=== PATIENT | male | born 1960 | race Caucasian/White ===

== ENCOUNTER → 2017-04-25 | Outpatient (CLI) | payer BC ==
[~2017-04-25] MED LIST: CMD10 PO; FRS/40 PO; LISI40TA PO
--- NOTE | 2017-04-25 14:09 | DIAGNOSTIC IMAGING REPORT ---
MRI OF THE LUMBAR SPINE WITHOUT IV CONTRAST CLINICAL HISTORY: Lumbar radiculopathy. Low back pain. Bilateral hip pain. COMPARISON STUDY: No priors. TECHNIQUE: MRI of the lumbar spine is performed utilizing various T1 and T2-weighted sequences in the axial and sagittal planes. IV contrast was not administered for this examination. FINDINGS: Lumbar spine: Vertebral body height and alignment are maintained throughout the lumbar spine. Marrow signal intensity is heterogeneous. A Schmorl's node is seen in the superior endplate of L3. Chronic degenerative endplate change with mild endplate edema is seen at L4-L5. Chronic endplate change is also seen at L1-L2, L2-L3, and L3-L4. The transverse and spinous processes appear intact. There is no evidence of spondylolysis. No destructive bony process is identified. Intervertebral discs: Degenerative disc desiccation is seen throughout the lumbar spine. Mild loss of height is noted at L4-L5 and there is mild to moderate loss of height at L2-L3. Spinal cord: The partially imaged spinal cord is normal in morphology and signal intensity. The conus medullaris terminates at the T12-L1 interspace. The nerve roots of the cauda equina are normal in morphology. L1-L2: There is posterior disc bulge with annular fissure. The central canal and neural foramina are patent. L2-L3: There is broad-based posterior disc bulge with annular fissure. In conjunction with hypertrophy of the ligamentum flavum there is mild acquired compromise of the central canal at this level. The minimum AP diameter measures 8.3 mm. There is bilateral subarticular stenosis with possible impingement on the exiting bilateral L2 nerve roots. L3-L4: There is narrowing of the central canal at this level, likely on a congenital basis. No significant disc bulge is seen. The minimum AP canal diameter measures 8 mm. The neural foramina are patent. Facet arthropathy is of no consequence. L4-L5: There is broad-based posterior disc bulge with annular fissure. In conjunction with hypertrophy of the ligamentum flavum there is moderate central canal stenosis at this level with a minimum AP diameter of 7 mm. There is bilateral subarticular stenosis, with probable impingement on the exiting bilateral L4 and possibly transiting L5 nerve roots. L5-S1: The central canal and neural foramina are widely patent. Facet arthropathy causes minimal left-sided neural foraminal stenosis. Facet joint effusions are noted. Sacrum: The partially imaged sacrum is normal in morphology and signal intensity. Soft tissues: The paraspinous soft tissues are within normal limits. The partially imaged retroperitoneal structures are grossly unremarkable but incompletely evaluated. IMPRESSION: 1. Multilevel lumbosacral spondylosis as above with multilevel acquired compromise of the central canal. This is greatest at L4-L5. See discussion for detailed level by level analysis. 2. No destructive bony lesion is identified. 3. Degenerative disc disease and endplate changes as above. Dictated: 04/25/2017 1:55 PM Transcribed: 04/25/2017 2:09 PM [email or web address] Electronically signed by: Jordan Mckeon M.D. 04/25/2017 2:10 PM Dictated Date/Time: 04/25/2017 1:55 PM
== END | disposition home or self-care (01) ==
LOC: C.MRIBC 12:19
PROVIDERS: ATTEND Pain Medicine Interventional Pain Medicine
DX: M47.27 Other spondylosis with radiculopathy, lumbosacral region (principal)

== ENCOUNTER 2020-12-09 10:07 | Observation (INO) ==
--- NOTE | 2020-11-20 10:51 | PAT Medication Instructions ---
Medication Instructions Date of Service November 20, 2020 Home Medications amlodipine 10 mg PO QAM ascorbic acid (vitamin C) [Vitamin C] 1 g PO QAM cholecalciferol (vitamin D3) [Vitamin D3] 125 mcg PO QAM labetalol 100 mg PO BID lisinopril 40 mg PO QPM meloxicam 15 mg PO QAM spironolacton-hydrochlorothiaz 1 tab PO QAM zinc 50 mg PO QAM ASK your surgeon for instructions meloxicam 15 mg PO QAM DO NOT take the morning of surgery ascorbic acid (vitamin C) [Vitamin C] 1 g PO QAM cholecalciferol (vitamin D3) [Vitamin D3] 125 mcg PO QAM spironolacton-hydrochlorothiaz 1 tab PO QAM zinc 50 mg PO QAM Take morning of surgery With a small sip of water, OTHERWISE NOTHING TO EAT OR DRINK AFTER MIDNIGHT: amlodipine 10 mg PO QAM labetalol 100 mg PO BID Take evening before surgery labetalol 100 mg PO BID lisinopril 40 mg PO QPM Other Notes If you have any questions please call us at [phone] or [phone] or [phone] or [phone]
--- NOTE | 2020-11-23 07:56 | History & Physical Report ---
Date of Service November 23, 2020 date of surgery: 12/09/20 Procedure: Right Total Knee Arthroplasty Assessment & Plan (1) Arthritis of right knee: Risks and benefits of procedure discussed in detail today, patient would like to proceed with a Right total knee replacement at [facility] as scheduled. will obtain medical clearance as well as cardiac clearance prior to surgery as well as obtain PATs at [facility]. Has history of PE, will place on Xarelto x 1 month post op, f/u 2 weeks post op for routine post-operative care and x-ray, sooner if having any problems. will make arrangements for HHPT at the time of discharge. At this point in time, has failed conservative measures and would like to proceed with surgical intervention. The risks and benefits have been discussed including, but not limited to, risk of infection, nerve injury, stiffness, loss of motion, failure to improve, etc. Reasonable outcomes and options of treatment were discussed. An explanation of appropriate alternatives to the procedure that may be advantageous were discussed and their risks and benefits, as well as the risks and benefits of not proceeding with treatment. I offered to answer any additional inquiries concerning the treatment involved. All the patient's questions were answered. The patient is agreeable, understanding of the treatment plan and alternatives, and wishes to proceed with the treatment plan. History of Present Illness Chief Complaint: Right knee pain Abelardo is a 60 year old male who complains of Right knee pain, presents for pre-op evaluation prior to a Right total knee replacement by dr Louis at [facility]. He complains of pain, crepitus, decreased range of motion, instability and stiffness in the right knee. Currently the patient states that the symptoms are moderate-severe. The pain is described as aching, sharp and throbbing. The symptoms are aggravated by ascending stairs, daily activities, first steps while awake walking. Prior NSAIDs include IBU and Aleve. He has been treated with previous cortisone and visco injections in the past without much relief. he has had Pt and sometimes uses a knee brace. prior right knee scope in November 2009. Allergies Allergy/AdvReac Type Severity Reaction Status Date / Time Sulfa (Sulfonamide Allergy Intermediate FEVER,HIVES Verified 11/19/20 15:20 Antibiotics) ,HALLUCINAT IONS latex Allergy Mild Rash Verified 11/19/20 15:20 celecoxib [From Celebrex] AdvReac Mild UPSET Verified 11/19/20 15:20 STOMACH/DIARRHEA Home Medications Medication Instructions Recorded Confirmed Type amlodipine 10 mg PO QAM 11/19/20 11/19/20 History ascorbic acid (vitamin C) [Vitamin 1 g PO QAM 11/19/20 11/19/20 History C] cholecalciferol (vitamin D3) 125 mcg PO QAM 11/19/20 11/19/20 History [Vitamin D3] labetalol 100 mg PO BID 11/19/20 11/19/20 History lisinopril 40 mg PO QPM 11/19/20 11/19/20 History meloxicam 15 mg PO QAM 11/19/20 11/19/20 History spironolacton-hydrochlorothiaz 1 tab PO QAM 11/19/20 11/19/20 History zinc 50 mg PO QAM 11/19/20 11/19/20 History Past Med/Surg History Medical History Hx of Choudhury's palsy 2018 Hypertension Osteoarthritis Passed out 08/31/20 (RELATED TO BP MEDICINE AND DEHYDRATION) Peripheral neuropathy Pulmonary embolism 2007 (? REASON, WAS ON BLOOD THINNER AFTER FOR 5 YEARS) Sleep apnea CPAP DEVICE Spinal stenosis Surgical History Family history of reaction to anesthesia MOTHER AND SISTER>NAUSEA ? SLOW TO WAKE UP History of appendectomy History of arthroscopy RT KNEE X2 LEFT KNEE X 1 History of cardiac cath NO STENTS (RECENT CATH DONE 3 WEEKS AGO AT [facility]) History of colonoscopy History of herniorrhaphy [place] teeth removed Family History Other No significant family history Social History Smoking Status: Never smoker Second Hand Exposure: No; Hx Alcohol Use: No Preferred Language: Khmer Folding Machine Tender Required: No Beliefs That Will Affect Care: None Current Living Situation: Spouse Feels Safe at Home: Yes Safety Concerns: Feels Safe At This Time Assistive Devices: Cane, CPAP and Glasses Review of Systems Review of Systems: All systems reviewed & are unremarkable except as noted in HPI & below Constitutional: no fever, no chills and no sweats Respiratory: no cough and no dyspnea Cardiovascular: no chest pain, no dyspnea and no orthopnea Gastrointestinal: no abdominal pain, no nausea and no vomiting Musculoskeletal: as per Subjective / HPI Physical Exam Physical Exam: HT: 6ft 4in WT: 153.77kg BP: 136/88 Pulse: 74 Constitutional: WD/WN, vitals as above no acute distress Respiratory: normal respiratory effort, lungs clear to auscultation no re spiratory distress, no labored breathing and does not use accessory muscles Cardiovascular: RRR, no murmur, no edema Gastrointestinal (Abdomen): normal bowel sounds, soft, nontender, no hepatosplenomegaly Musculoskeletal: Knee: + knee abnormal to inspection (Right Knee- ), + effusion (+1 effusion), + limited ROM of knee (ROM 0/3/110), + knee ROM with crepitation, + joint line tenderness (medial joint line) and + Tiff's sign positive; no deformity, no skin erythema, no ecchymosis, no valgus laxity, no varus laxity, anterior drawer test negative, Patricia's sign negative and pivot shift test negative Results & Data Results & Data ([facility]) Diagnostic Findings Right Knee X-ray series showing advanced degenerative changes to the right knee, narrowing of the medial compartment and patello-femoral joint with patellar spurring noted, findings showing joint space narrowing of the medial compartment and patello-femoral joint, osteophyte formation and subchondral sclerosis noted. overall varus alignment. no acute bony pathology noted. bipartate patella noted.
--- NOTE | 2020-11-23 10:10 | Anesthesiology Consultation ---
Date of Service November 23, 2020 Assessment & Plan (1) Encounter for pre-operative examination: COVID Status: As of 11/23 assessment, patient denies travel to endemic area, known exposure/sick contacts, or symptoms of COVID19. Patient instructed that they and their household members must follow strict social distancing guidelines, wear a mask in public and avoid travel/events/gatherings for 14 days prior to surgery. Preoperative COVID19 testing to be completed prior to surgery per surgeon's arrangements. Patient made aware to self-isolate as much as possible between COVID testing and surgery. Pt receiving second COVID vaccine 11/23. Note sent to PCP re: new diabetes diagnosis. Requested that if PCP starts pt on new medication to also provide kelli-operative instructions for that med. BSG AM DOS Chart Review Chart Review: Acceptable Risk for Surgery and Patient seen in Pre Admission Test ing Teaching & Discussion Instructed NPO after midnight before surgery, except medications with 15 cc of water. Medication instructions provided according to the PAT guidelines. History Surgery Operation Date: 12/09/20 12:20 Proposed Procedures p Right Total Knee Arthroplasty - Jesus Louis DO Height/Weight Height: 6 ft 4 in Weight: 157.9 kg Allergies Allergy/AdvReac Type Severity Reaction Status Date / Time Sulfa (Sulfonamide Allergy Intermediate FEVER,HIVES Verified 11/19/20 15:20 Antibiotics) ,HALLUCINAT IONS latex Allergy Mild Rash Verified 11/19/20 15:20 celecoxib [From Celebrex] AdvReac Mild UPSET Verified 11/19/20 15:20 STOMACH/DIARRHEA Medications Home Medications Medication Instructions Recorded Confirmed Last Taken amlodipine 10 mg PO QAM 11/19/20 11/19/20 Unknown ascorbic acid (vitamin C) [Vitamin 1 g PO QAM 11/19/20 11/19/20 Unknown C] cholecalciferol (vitamin D3) 125 mcg PO QAM 11/19/20 11/19/20 Unknown [Vitamin D3] labetalol 100 mg PO BID 11/19/20 11/19/20 Unknown lisinopril 40 mg PO QPM 11/19/20 11/19/20 Unknown meloxicam 15 mg PO QAM 11/19/20 11/19/20 Unknown spironolacton-hydrochlorothiaz 1 tab PO QAM 11/19/20 11/19/20 Unknown zinc 50 mg PO QAM 11/19/20 11/19/20 Unknown Past Medical History Medical History (Updated 11/23/20 @ 14:24 by Emiliano Davenport) Diabetes mellitus Patient unaware, PCP also has no record of this diagnosis -- A1C 7.7% on pre- op labs. PCP notified. Hx of Choudhury's palsy 2019, UNKNOWN ETIOLOGY Hypertension Morbid obesity Osteoarthritis Passed out 08/31/20 (RELATED TO BP MEDICINE AND DEHYDRATION) Peripheral neuropathy Pulmonary embolism 2007 (? ETIOLOGY, WAS ON BLOOD THINNER AFTER FOR 5 YEARS) Sleep apnea CPAP DEVICE, 100% COMPLIANCE Spinal stenosis Exercise / Class Metabolic Activity II 4-5 Yardwork/Stairs/Walk up hill (DENIES CP WITH 1 FOS, MAYBE MILDLY SOB, USES WALKING STICK FOR AMBULATION) Past Family History Family History Other No significant family history Past Surgical History Surgical History (Updated 11/23/20 @ 10:20 by Emiliano Davenport) History of appendectomy History of arthroscopy RT KNEE X2 LEFT KNEE X 1 History of cardiac cath NO STENTS (RECENT CATH DONE 3 WEEKS AGO AT [facility]) History of colonoscopy History of herniorrhaphy [place] teeth removed Past Anesthesia History No Hx of Anesthesia Complications (OTHER THAN POST-OP HTN PER PATIENT) and No Family Hx of Anesthesia Complications (OTHER THAN NAUSEA) History of PONV No Hx of PONV and No Hx of Motion Sickness Social History Smoking Status: Never smoker Do You Dip or Chew Tobacco: No Hx Alcohol Use: No substance use type: does not use Review of Systems Pt denies any recent chest pain, shortness of breath, palpitations, cough, fever , URI, or uncontrolled acid reflux. Pt reports steroid injection to lumbar spine ~ 2 weeks ago. Physical Exam Vital Signs BP: 133/80 P: 60bpm SPO2: 96% RA T: 98.4 F R: 18 Constitutional + morbidly obese ENMT Mouth: no dental restorations, no chipped teeth and no loose teeth Thyromental Distance: > or= 3.5 Finger Breadths Mallampati Class: II Neck + thick neck and + facial hair (short fernandez); neck extension not limited Respiratory normal respiratory effort, lungs clear to auscultation Auscultation: + diminished lung sounds Cardiovascular RRR, no murmur, no edema Distant heart sounds. Testing Laboratory Results 11/23/20 10:39 11/23/20 10:39 PT 10.7 Seconds (9.0-12.0) 11/23/20 10:39 INR 1.1 (0.9-1.1) 11/23/20 10:39 APTT 25.1 Seconds (21.0-31.0) 11/23/20 10:39 Hemoglobin A1c 7.7 % (4.5-5.6) H 11/23/20 10:39 Urine Color Yellow 11/23/20 10:39 Urine Appearance Clear (Clear) 11/23/20 10:39 Urine pH 5.0 (4.5-7.5) 11/23/20 10:39 Ur Specific [place] 1.027 (1.000-1.030) 11/23/20 10:39 Urine Protein Negative (Negative) 11/23/20 10:39 Urine Glucose (UA) Negative (Negative) 11/23/20 10:39 Urine Ketones Trace (Negative) H 11/23/20 10:39 Urine Nitrite Negative (Negative) 11/23/20 10:39 Ur Leukocyte Esterase Negative (Negative) 11/23/20 10:39 Blood Type O Positive 11/23/20 10:39 Antibody Screen NEGATIVE 11/23/20 10:39 *New diagnosis of DM. PCP made aware, labs forwarded for continuity of care. Electrocardiogram Date: 08/31/20 Findings: + NSR @ (75bpm) Left axis deviation. Possible anterior infarct, age undetermined. Chest X-Ray Date: 08/31/20 Findings: + NAD Right costophrenic angle excluded (not captured on x-ray). The heart is mildly enlarged. Echocardiogram Date: 10/02/20 EF: 55% Normal EF. Mild concentric LVH. Mildly dilated right ventricle with normal fu nction. Moderately dilated left atrium. Mildly dilated right atrium. Trileaflet aortic valve with trace aortic regurgitation. Mild mitral regurgitation. Normal tricuspid valve. Mild to moderate tricuspid regurgitation. Mildly increased PASP at 44 mmHg. Normal pulmonic valve. Physiologic pulmonic regurgitation. The aortic root is enlarged. Stress Test Date: 10/02/20 Type: nuclear Lexiscan stress EKG was negative for myocardial ischemia. Nuclear images show medium sized, moderate, reversible inferior wall defect suggestive of ischemia. No evidence of myocardial infarction. Normal LV EF and normal wall motion. Moderately abnormal stress test. *See cardiac cath below -- false + stress test Cardiac Catheterization Date: 10/15/20 No significant angiographic coronary artery disease. Normal left-sided filling pressure. No aortic stenosis.
[2020-11-23 11:13] LABS: Appearance Urine Clear (Clear); Basophils # (auto) 0.04 K/uL (0-0.2); Basophils % (auto) 0.4 %; Bilirubin Urine Negative (Negative); Blood Urine Negative (Negative); Color Urine Yellow; Eosinophils # (auto) 0.17 K/uL (0-0.5); Eosinophils % (auto) 1.8 %; Glucose Urine UA Negative (Negative); Hematocrit (blood only) 42.7 % (42-52); Hemoglobin 15.1 g/dL (14.0-18.0); Immature Granulocytes # (auto) 0.02 K/uL (0.00-0.02); Immature Granulocytes % (auto) 0.2 %; Ketones Urine Trace (Negative); Leukocyte Esterase Urine Negative (Negative); Lymphocytes # (auto) 1.42 K/uL (1.2-3.4); Lymphocytes % (auto) 14.8 %; Mean Corpuscular Hemoglobin 30.9 pg (25-34); Mean Corpuscular Hgb Conc 35.4 g/dL (32-36); Mean Corpuscular Volume 87.5 fL (80-100); Mean Platelet Volume 10.3 fL (7.4-10.4); Monocytes # (auto) 1.19 K/uL (0.11-0.59); Monocytes % (auto) 12.4 %; Neutrophils # (auto) 6.78 K/uL (1.4-6.5); Neutrophils % (auto) 70.4 %; Nitrite Urine Negative (Negative); Platelet Count 293 K/uL (130-400); Protein Urine Negative (Negative); RDW Coefficient of Variation 13.7 % (11.5-14.5); RDW Standard Deviation 43.7 fL (36.4-46.3); Red Blood Count 4.88 M/uL (4.7-6.1); Specific Gravity Urine 1.027 (1.000-1.030); Urobilinogen Urine Negative (Negative); White Blood Count 9.62 K/uL (4.8-10.8)
[2020-11-23 11:26] LABS: INR 1.1 (0.9-1.1); Partial Thromboplastin Time 25.1 Seconds (21.0-31.0); Prothrombin Time 10.7 Seconds (9.0-12.0)
[2020-11-23 11:37] LABS: Estimated Average Glucose 174 mg/dl; Hemoglobin A1C 7.7 % (4.5-5.6)
[2020-11-23 11:49] LABS: Albumin Level 3.2 gm/dl (3.4-5.0); BUN Creatinine Ratio 14.5 (10-20); Calcium 8.5 mg/dl (8.5-10.1); Creatinine Clr Calc Pharmacy 131.7 ml/min; Est GFR (African American) 98.5
[~2020-12-09 10:07] MED LIST changes: +ACETAMINOPHEN 500 MG TAB PO SCH; +BUPIVACAINE 0.25% 30 ML VIAL ONE; +BUPIVACAINE 0.5 % 5 MG/1 ML PF 10ML VIAL ONE; -CMD10 PO; +FAMOTIDINE 20 MG TAB PO SCH; -FRS/40 PO; +GABAPENTIN 600 MG DOSE PO SCH; -LISI40TA PO; +LR 500ML BOLUS, THEN 15ML/HR IV SCH; +METOCLOPRAMIDE HCL 10 MG TABLET PO SCH; +ROPIVACAINE 0.5% HCL/PF 150 MG, BUPIVACAINE 0.75% MPF 20 ML, EPINEPHrine 30MG/30ML (OR ... INFIL SCH; +ROPIVACAINE 0.5% HCL/PF 150 MG, BUPIVACAINE 0.75% MPF 20 ML, EPINEPHrine 30MG/30ML (OR ... INSTIL SCH; +TRANEXAMIC ACID 1,000 MG **IV Intra-op IV SCH; +TRANEXAMIC ACID 1,000 MG **IV Pre-op IV SCH; +dexAMETHasone 4 MG TAB PO SCH; +oxyCODONE HCL 10 MG TABCR (OxyCONTIN) PO SCH
--- NOTE | 2020-12-09 11:04 | History & Physical Bridge Note ---
Date of Service December 09, 2020 History & Physical Bridge Note I have examined the patient, reviewed the History & Physical and in the interval since the performance of the History & Physical I have noted the following changes of clinical significance: no changes noted
[2020-12-09] MEDS ORDERED: fentaNYL citrate 100 MCG/2 ML VIAL ONE (11:09)
[2020-12-09] MEDS ORDERED: MIDAZOLAM HCL 1 MG/ML 2ML VIAL ONE ×2 (11:09)
[2020-12-09] MEDS ORDERED: LIDOCAINE HCL 2% 2 ML VIAL/AMP(20MG/ML) INFIL ONE (11:14)
[2020-12-09] MEDS ORDERED: PROPOFOL IV EMULSION 10 MG/ML 20 ML VIAL IV ONE (11:14)
[2020-12-09] MEDS ORDERED: BACITRACIN INJ 50,000 UNIT VIAL ONE (11:36)
[2020-12-09] MEDS ORDERED: ORTHO JOINT ANESTHETIC ONE (11:36)
[2020-12-09] MEDS ORDERED: ATROPINE SULFATE 0.1 MG/ML 10ML SYR IV PRN (11:49)
[2020-12-09] MEDS ORDERED: ePHEDrine sulfate 50 MG/ML AMP IV PRN (11:49)
[2020-12-09] MEDS ORDERED: ONDANSETRON INJ 2 MG/ML 2 ML VIAL IV PRN ×2 (11:49→14:52)
--- NOTE | 2020-12-09 13:40 | Operative Report ---
Post Operative Report Pre & Post Diagnosis Operation Date: 12/09/20 12:50 Pre-Op Diagnosis: Osteoarthritis, Right Knee Post-Op Diagnosis: Osteoarthritis, Right Knee I identified the patient and participated in the time-out.: Yes Procedure Operation Date: 12/09/20 12:50 Actual Procedures p Right Total Knee Arthroplasty(Right) utilizing [facility] 2 patient matched total knee Damien plasty size 9 femur 8 tibia with 70 x 10 mm stem 12 polyethylene 38 oval patella- Jesus Louis DO Surgeon Jesus Louis DO Color Tester Robert POWELL Estimated Blood Loss 10 Findings Consistent with Post-Op Diagnosis Patient presents with severe end-stage tricompartmental degenerative joint disease varus alignment subchondral [id number] eburnated bone with marginal osteophytes moderate to large effusion Specimens Bone and cartilage Drains Medium bore Hemovac Anesthesia Type MAC Spinal Regional Complications none Disposition Accompanied Patient To Recovery: No Disposition: Recovery Room Indications Patient presents with severe end-stage DJD right knee nonresponse to conservative management failed attempted corticosteroid injection Visco supplementation relative rest activity modification presents today for right total knee arthroplasty above intraoperative findings were noted Description of Procedure After proper prepping and draping of the Right lower extremity anterior midline incision was made over the region of the extensor extensor mechanism after meticulous hemostasis was obtained and maintained in subcutaneous tissues a medial parapatellar incision was made The patella was subluxed lateralward the medial lateral gutter were cleaned from any hypertrophic synovitis and scar tissue of the distal femoral block was placed and the distal femoral osteotomy cut was made subsequently the chamfers anterior and posterior osteotomy cuts were made utilizing the 4-in-1 block the tibia was subsequently subluxed anteriorward medial and ateral meniscal remnants were excised in their entirety remnants of the anterior and posterior cruciate ligaments were excised in their entirety excellent exposure of the proximal tibia was obtained the tibial osteotomy guide was placed on the proximal tibial osteotomy cut was made once again the knee was irrigated with copious amounts of sterile saline solution the patella was subsequently everted lateralward thickened scar tissue around the patella was removed the patella was subsequently cut utilizing a freehand technique and was drilled prepared for final preparation and placement of patella socially flexion-extension gaps were checked and the equal and symmetric trials were placed to the appropriate femoral and tibial trials with poly-spacer being placed for equal flexion and extension gaps and full range of motion including extension to 0 and flexion to 140 the trial components after having been taken to recovery range of motion was subsequently removed meticulous hemostasis was obtained and maintained subsequently a knee block injection of joint cocktail including ropivacaine 0.5% 150 mg. Bupivacaine 0.5% epinephrine 1-200,030 mL's toradol 30 mg dexamethasone 4 mg ketamine 10 mg clonidine 100 micrograms normal saline solution 30 mg was infiltrated into the soft tissues of the posterior knee medial lateral gutters and periosteal synovium special attention was paid to protect neurovascular structures at all times subsequently trial components having been removed the knee was irrigated with sterile saline solution. debris was removed the proximal tibia was subsequently prepared and was made ready for the placement of the tibial component tibial component was also cemented and tamped into position the femoral component was subsequently placed and cemented in the position the patellar component was subsequently cemented in position because hemostasis once again obtained and maintained wound having been thoroughly irrigated with debridement and debridement lavage was performed as well as a medial parapatellar incision closed with #1 Vicryl in interrupted fashion subcutaneous was closed with #2 Vicryl skin was closed with skin clips. PA-C was necessary for prepping and drapping as well as wound closure of deep fascia Sub cutaneous tissue and skin and was necessary for the case. A sterile compressive dressing was placed patient was taken to recovery in stable condition of report dictated by Heriberto I attest to the content of the Intraoperative Record and any orders documented therein. Any exceptions are noted below. I attest to the content of the Intraoperative Record and any orders documented therein. Any exceptions are noted below.
--- NOTE | 2020-12-09 14:33 | Anesthesiology Progress Note ---
Date of Service December 09, 2020 Anesthesia Post Procedure Vital Signs Vital Signs: Temp Pulse Pulse Resp BP Pulse Ox 12/09/20 14:25 68 11 L 133/67 97 12/09/20 14:19 36.1 C L 73 14 142/72 H 96 12/09/20 11:22 69 20 138/91 93 12/09/20 10:46 36.5 C 62 20 144/96 H 94 Pain Intensity Right Knee: Pain Intensity: 6 Transfer of Care Handoff Completed per policy Notes Mental Status: alert / awake / arousable and participated in evaluation Patient Amnestic to Procedure: Yes Nausea / Vomiting: adequately controlled Pain: adequately controlled Airway Patency, RR, SpO2: stable & adequate BP & HR: stable & adequate Hydration State: stable & adequate Neuraxial Anesthesia: was administered and sensory block is resolving Anesthetic Complications: no major complications apparent and Pt Satisfied with anesthetic care
[2020-12-09] MEDS ORDERED: METOCLOPRAMIDE HCL INJ 5 MG/ML 2 ML VIAL IV PRN (14:52)
[2020-12-09] MEDS ORDERED: HYDROmorphone INJ 1 MG/ML SYRINGE IV PRN (14:52)
[2020-12-09] MEDS ORDERED: NALOXONE HCL 0.4 MG/1 ML VIAL/CARP IV PRN (14:52)
[2020-12-09] MEDS ORDERED: diphenhydrAMINE Capsule 25 MG CAP PO PRN (14:52)
[2020-12-09] MEDS ORDERED: MAGNESIUM HYDROXIDE SUSP 30 ML UDC PO PRN (14:52)
[2020-12-09] MEDS ORDERED: bisacodyL 10 MG SUPP PR PRN (14:52)
--- NOTE | 2020-12-09 14:57 | XRay Report ---
RIGHT KNEE 2 VIEWS History: Right total knee arthroplasty. Degenerative arthritis. Postop. FINDINGS: The patient is status post a right total knee arthroplasty. The hardware is intact. No frac ture or dislocation. Skin mata and surgical drains are in place. IMPRESSION: Right total knee arthroplasty. No evidence for hardware complication. ACT 112: Negative or not required by law. Electronically signed by: Dennis Blake M.D. 12/09/2020 2:56 PM
[2020-12-09] MEDS ORDERED: GLUCOSE 10 TABS/TUBE PO PRN (16:16)
[2020-12-09] MEDS ORDERED: GLUCAGON FOR INJ 1 MG VIAL SQ PRN (16:16)
[2020-12-09] MEDS ORDERED: CARBOHYDRATES FOR HYPOGLYCEMIA PO PRN (16:16)
[2020-12-09] MEDS ORDERED: GLUCOSE 40% GEL 15 GM TUBE PO PRN (16:16)
[2020-12-09] MEDS ORDERED: DEXTROSE 50% 50 ML SYRINGE IV PRN (16:16)
--- NOTE | 2020-12-09 16:18 | Hospitalist Consultation ---
Date of Consultation December 09, 2020 Assessment & Plan (1) Arthritis of right knee: * S/p RIGHT TKA with Dr. Louis on 12/09. EBL 10cc. * Pre-op h/h 15.1/42.7 * Ancef abx * PT/OT/pain management per primary service * DVT prophylaxis with Xarelto 10mg daily starting tomorrow along with SCDs/joe hose * Labs in AM (2) Hypertension: * Most recent ECHO Sep 2020 with Left ventricle is normal in size with normal ejection fraction 55%. Mild concentric LVH. Mild left atrial dilation as well as mildly dilated right ventricle with normal function. Right atrium mildly dilated. Mild mitral regurgitation directed centrally. The mitral valve is mildly thickened. Aortic valve with trace aortic regurgitation. Mild to moderate tricuspid regurgitation centrally directed as well. With the PASP equal to 44 mmHg * Maki Stress ECHO 10/02/20 NEGATIVE for MYOCARDIAL ISCHEMIA but per cath report reason given for needing done "for stress test showing moderate inferior ischemia" * Cardiac catheterization 10/15 [facility] with Dr Bahena which did NOT show significant angiographic CAD. Normal L sided filling pressure. No aortic stenosis * No cp/sob or hx of CT * Home medications include: Amlodipine 10mg, labetalol 100mg BID which will be continued. * Holding lisinopril 40mg HS and HCTZ-Spironolatone post-operatively until BP/kidney function evaluated in AM * Also newly diabetic with A1c 7.7 and on JAY appropriately but will also add lipid panel to AM labs as patient not on statin or ASA for prevention * BP currently 124/78 * Continue to monitor (3) Diabetes mellitus: * NEW on pre-admission testing with A1c 7.7 * PCP was contacted but patient not yet on any medications --> discussed. No family or personal history but will need f/u outpatient as he would like to hold off starting metformin until seen by PCP * Changed diet to DM, AHA * Consulted simulation educator * BSG AC/HS * ISS while inpatient * Continue to monitor (4) Pulmonary embolism: * Hx of in 2007 -- unprovoked. Was told he must have had one started in his leg that traveled. * No hx coagulopathy/Lupus/etc but was continued on coumadin for approximately 6-7 years before stopping * Calves non-tender/non-edematous/erythematous * Xarelto being used post-operatively for DVT prophylaxis (5) Sleep apnea: * He brought his home CPAP * --> order to use own CPAP placed (6) DVT prophylaxis: * SCDs, joe carroll, Xarelto as above Dispo: per patient, plans for rehab Thank you for allowing hospitalist service to participate in the care of Mr Douglas. Hospitalist service will follow along. Supervising Physician Co-Signing Physician Notes PA Supervision Note: I personally saw and examined the patient. I verified all moses points and agree with SHERRY Beintez with the following exceptions and/or additions: S-patient reports doing well postoperatively. He is urinating, denies chest pain or shortness of breath, no abdominal pain or nausea. Pain is controlled the knee. O- Vitals reviewed Gen: AAOx3, NAD, morbidly obese HEENT: Anicteric sclerae, EOMI CV: RRR no mgr nl S1S2 Pulm: CTAB no wcr Abd: +BS soft NT ND no masses or hernias Ext: No edema, RLE with Jay wrap in place not removed Skin: No rashes, warm/dry Neuro: Full strength throughout A/Z-34-fapp-old male here with DM 2, HTN, history of PE, BIB on CPAP, status post right TKA Doing well postoperatively Agree with plan as above, holding home HCTZ/spironolactone, lisinopril, follow CBC and BMP in the morning History of Present Illness Reason for Consultation: medical management Requesting Physician: Dr Louis Attending Physician: Jesus Louis, DO History of Present Illness 60yo male with PMHx significant for DM II (new, A1c 7.7 but not on medications), HTN, PE (2007), BIB, [place]gra[place] Palsy 2018, presented to RIGHT TKA with Dr. Louis after failing conservative treatment. Patient was seen postoperatively in his room. States pain is creeping up now that the nerve block is wearing off but tolerable at this time. He has been drinking water since surgery without difficulty but has not yet eaten. He moved his bowels yesterday morning. He states he plans on doing rehab at discharge followed by outpatient physical therapy. He denies any fever, chills, chest pain, shortness of breath, abdominal pain, nausea, vomiting, dysuria at this time. Related to pertinent PMH: * Has a history of BIB and has his CPAP with him in the room for use tonight. * He does admit to a history of pulmonary embolism in 2007 which was unclear in etiology as he did not have any trauma, known DVT, surgery, or immobilization at that time. He states that he was continued on Coumadin for approximately 6 to 7 years before this was discontinued but plans on continuing with Xarelto for DVT prevention post operatively. * He states he was seen in September and unintended by Dr. Bahena performed a cardiac catheterization for reported chest pain with exertion and was felt to have some risk but felt okay for proceeding with surgery. No further medication changes were made and patient proceeded with surgery today with Dr. Louis for his left total knee arthroplasty. * He was seen in preadmission testing where they checked an A1c which was elevated at 7.7 in a patient with no personal or family history of diabetes. The results were forwarded to his primary care provider Dr. Wilcox. Discussion was undertaken regarding starting Metformin at discharge versus following up with Dr. Wilcox to start this therapy. We did discuss utilizing sliding scale insulin while in the hospital to help with wound healing. Allergies Allergy/AdvReac Type Severity Reaction Status Date / Time Sulfa (Sulfonamide Allergy Intermediate FEVER,HIVES Verified 12/09/20 10:34 Antibiotics) ,HALLUCINAT IONS latex Allergy Mild Rash Verified 12/09/20 10:34 celecoxib [From Celebrex] AdvReac Mild UPSET Verified 12/09/20 10:34 STOMACH/DIARRHEA Home Medications Medication Instructions Recorded Confirmed Type amlodipine 10 mg PO QAM 11/19/20 12/09/20 History ascorbic acid (vitamin C) [Vitamin 1 g PO QAM 11/19/20 11/19/20 History C] cholecalciferol (vitamin D3) 125 mcg PO QAM 11/19/20 11/19/20 History [Vitamin D3] labetalol 100 mg PO BID 11/19/20 12/09/20 History lisinopril 40 mg PO QPM 11/19/20 12/09/20 History meloxicam 15 mg PO QAM 11/19/20 12/09/20 History spironolacton-hydrochlorothiaz 1 tab PO QAM 11/19/20 12/09/20 History zinc 50 mg PO QAM 11/19/20 11/19/20 History Patient History Medical History Diabetes mellitus Patient unaware, PCP also has no record of this diagnosis -- A1C 7.7% on pre- op labs. PCP notified. Hx of Choudhury's palsy 2019, UNKNOWN ETIOLOGY Hypertension Morbid obesity Osteoarthritis Passed out 08/31/20 (RELATED TO BP MEDICINE AND DEHYDRATION) Peripheral neuropathy Pulmonary embolism 2007 (? ETIOLOGY, WAS ON BLOOD THINNER AFTER FOR 5 YEARS) Sleep apnea CPAP DEVICE, 100% COMPLIANCE Spinal stenosis Surgical History History of appendectomy History of arthroscopy RT KNEE X2 LEFT KNEE X 1 History of cardiac cath NO STENTS (RECENT CATH DONE 3 WEEKS AGO AT [facility]) History of colonoscopy History of herniorrhaphy [place] teeth removed Family History Other No significant family history Social History (Updated 12/09/20 @ 16:37 by Nettie Benitez PA-C) Smoking Status: Never smoker Tobacco Type: Smokeless Tobacco (Dip or Chew) Age Quit Using Tobacco: 31; Second Hand Exposure: No; Do You Dip or Chew Tobacco: No; Hx Alcohol Use: Yes Alcohol Intake Frequency: Monthly or Less Alcohol Intake Frequency Comment: last drink reported 2 years ago Preferred Language: [place] Ribbon Winder Required: No Beliefs That Will Affect Care: None Current Living Situation: Spouse Feels Safe at Home: Yes Safety Concerns: Feels Safe At This Time Assistive Devices: Cane, CPAP and Glasses Review of Systems Review of Systems: All systems reviewed & are unremarkable except as noted in HPI & below Physical Exam Constitutional: WD/WN, vitals as above + morbidly obese and cooperative; no acute distress Eyes: + anicteric sclerae and PERRL ENMT: Ears: no hearing impairment and no EAC abnormality Neck: trachea midline (thick neck) Respiratory: normal respiratory effort, lungs clear to auscultation Auscultation: + diminished lung sounds Cardiovascular: RRR, no murmur, no edema Gastrointestinal (Abdomen): normal bowel sounds, soft, nontender, no hepatosplenomegaly Musculoskeletal: RIGHT knee dressing c/d/i hemovac with 20cc bloody drainage NVI DP, PT pulses palpable bilaterally 5/5 dorsiflexion/plantar flexion Skin: cool, dry Neurologic: PERRL, EOMI, accommodation nl, no face palsy, no dysarthria Psychiatric: A+Ox3, euthymic affect Genitourinary: NO TELLES Lymphatic: no cervical or axillary lymphadenopathy Results & Data Results & Data ([facility]) Vital Signs (Past 12 Hours) Vital Signs Temp Pulse Pulse Resp BP Pulse Ox 12/09/20 15:43 64 16 134/79 93 12/09/20 15:12 36.4 C L 63 20 165/72 H 95 12/09/20 14:45 36.5 C 69 15 158/75 H 95 12/09/20 14:35 69 17 142/73 H 95 12/09/20 14:25 68 11 L 133/67 97 12/09/20 14:19 36.1 C L 73 14 142/72 H 96 12/09/20 11:22 69 20 138/91 93 12/09/20 10:46 36.5 C 62 20 144/96 H 94 Laboratory Results 12/09/20 12/09/20 12/09/20 Range/Units 14:20 10:33 10:22 POC Glucose 158 H 150 H (70-99) mg/dl COVID-19 Eval Order SARS-CoV-2, RNA, NAAT NEGATIVE (NEGATIVE) 12/09/20 Range/Units 10:22 POC Glucose (70-99) mg/dl COVID-19 Eval Order Covid19 [facility] SARS-CoV-2, RNA, NAAT (NEGATIVE) PG Care Time/CCT Total # of Minutes Spent Total Time Spent with Patient: Total time spent is greater than 50% in coordination of care (as documented) at patient's floor/unit and/or counseling patient: Coding Level of Care Code 48815 Office/OBS Consult Lvl 3 Diagnoses Arthritis of right knee M17.11 Hypertension I10 Diabetes mellitus E11.9 Pulmonary embolism I26.99 Sleep apnea G47.30 DVT prophylaxis Z29.9
[2020-12-09] MEDS: SODIUM CHLORIDE 0.9% 1000ML 1,000 ML IV SCH (16:38)
[2020-12-09] MEDS: ACETAMINOPHEN 500 MG TAB PO SCH ×2 (16:39→21:58)
[2020-12-09] MEDS: KETOROLAC 30 MG/ML VIAL IV SCH ×2 (16:41→21:59)
[2020-12-09] MEDS: INSULIN ASPART 100 UNITS/ML 3 ML PEN SC SCH ×2 (17:57→21:12)
[2020-12-09] MEDS: oxyCODONE HCL IR 5 MG TAB (IMMEDIATE RELEASE) PO PRN (19:48)
[2020-12-09] MEDS: ceFAZolin 2000MG 2,000 MG/15 ML SYR IV SCH (19:49)
[2020-12-09] MEDS: LABETALOL HCL 100 MG TAB PO SCH (20:00)
[2020-12-09] MEDS: DOCUSATE SODIUM 100 MG CAP PO SCH (20:00)
[2020-12-09] MEDS ORDERED: SENNA 8.6 MG TAB PO SCH (21:00)
[2020-12-09] MEDS ORDERED: lisinopril 40 MG TAB PO SCH (21:00)
[2020-12-10] MEDS: oxyCODONE HCL IR 5 MG TAB (IMMEDIATE RELEASE) PO PRN ×2 (01:41→09:24)
[2020-12-10] MEDS: SODIUM CHLORIDE 0.9% 1000ML 1,000 ML IV SCH (03:35)
[2020-12-10] MEDS: ceFAZolin 2000MG 2,000 MG/15 ML SYR IV SCH (03:54)
[2020-12-10] MEDS: KETOROLAC 30 MG/ML VIAL IV SCH ×2 (03:54→10:35)
[2020-12-10] MEDS: ACETAMINOPHEN 500 MG TAB PO SCH (05:03)
[2020-12-10 08:34] LABS: Hematocrit (blood only) 39.9 % (42-52); Hemoglobin 13.9 g/dL (14.0-18.0); Mean Corpuscular Hemoglobin 30.2 pg (25-34); Mean Corpuscular Hgb Conc 34.8 g/dL (32-36); Mean Corpuscular Volume 86.6 fL (80-100); Mean Platelet Volume 10.8 fL (7.4-10.4); Platelet Count 320 K/uL (130-400); RDW Coefficient of Variation 13.5 % (11.5-14.5); RDW Standard Deviation 42.8 fL (36.4-46.3); Red Blood Count 4.61 M/uL (4.7-6.1); White Blood Count 16.96 K/uL (4.8-10.8)
[2020-12-10 08:39] LABS: BUN Creatinine Ratio 16.7 (10-20); Calcium 8.7 mg/dl (8.5-10.1); Creatinine Clr Calc Pharmacy 116.9 ml/min; Est GFR (African American) 86.4; Est GFR (Non-African American) 74.5; Potassium 3.7 mmol/L (3.5-5.1)
[2020-12-10] MEDS ORDERED: SPIRONOLACTONE/HCTZ 25-25 PO SCH (09:00)
[2020-12-10] MEDS ORDERED: amLODIPine BESYLATE 5 MG TAB PO SCH (09:00)
[2020-12-10] MEDS ORDERED: RIVAROXABAN 10 MG TABLET PO SCH (09:00)
[2020-12-10] MEDS ORDERED: ASCORBIC ACID 500 MG TAB PO SCH (09:00)
[2020-12-10] MEDS ORDERED: CHOLECALCIFEROL 1,000 UNITS 25 MCG TAB PO SCH (09:00)
[2020-12-10] MEDS ORDERED: MULTIVITAMIN TAB PO SCH (09:00)
--- NOTE | 2020-12-10 09:11 | Hospitalist Progress Note ---
Date of Service December 10, 2020 Assessment & Plan (1) Arthritis of right knee: * S/p RIGHT TKA with Dr. Louis on 12/09. EBL 10cc. * Pre-op h/h 15.1/42.7 * Hgb with drop to 13.9 -- acute blood loss anemia from surgery and dilutional from IVF * Ancef abx * PT/OT/pain management per primary service * DVT prophylaxis with Xarelto 10mg daily along with SCDs/joe halliee Plans for d/c today per primary service (2) Hypertension: * Most recent ECHO Sep 2020 with Left ventricle is normal in size with normal ejection fraction 55%. Mild concentric LVH. Mild left atrial dilation as well as mildly dilated right ventricle with normal function. Right atrium mildly dilated. Mild mitral regurgitation directed centrally. The mitral valve is mildly thickened. Aortic valve with trace aortic regurgitation. Mild to moderate tricuspid regurgitation centrally directed as well. With the PASP equal to 44 mmHg * Maki Stress ECHO 10/02/20 NEGATIVE for MYOCARDIAL ISCHEMIA but per cath report reason given for needing done "for stress test showing moderate inferior is chemia" * Cardiac catheterization 10/15 [facility] with Dr Bahena which did NOT show significant angiographic CAD. Normal L sided filling pressure. No aortic stenosis * No cp/sob or hx of VT * Home medications include: Amlodipine 10mg, labetalol 100mg BID which will be continued. * Also newly diabetic with A1c 7.7 and on CHUCK appropriately but will also add lipid panel to AM labs as patient not on statin or ASA for prevention --> Lipid panel acceptable BP slightly low this AM and continue to hold spironolactone/HCTZ but improved to 138/79 and instructed he can resume his lisinopril this evening Follow up outpatient (3) Diabetes mellitus: * NEW on pre-admission testing with A1c 7.7 * PCP was contacted but patient not yet on any medications --> discussed. No family or personal history but will need f/u outpatient as he would like to hold off starting metformin until seen by PCP * Changed diet to DM, AHA * Consulted nurses educator * BSG AC/HS * ISS while inpatient * BSGs acceptable * He was initially frustrated with carbohydrate diet but discussed importance of watching dietary intake and modifications to help lower A1c as he wanted to hold off starting metformin (4) Pulmonary embolism: * Hx of in 2007 -- unprovoked. Was told he must have had one started in his leg that traveled. * No hx coagulopathy/Lupus/etc but was continued on Coumadin for approximately 6-7 years before stopping * Calves non-tender/non-edematous/erythematous * Xarelto being used post-operatively for DVT prophylaxis (5) Sleep apnea: * He brought his home CPAP * --> order to use own CPAP placed (6) DVT prophylaxis: * SCDs, joe hose, * Xarelto as above D/c planned for today Thank you for allowing hospitalist service to participate in the care of Mr Douglas. Hospitalist service will sign off at this time. Admission and Anticipated Discharge Date Admission Date: December 09, 2020 Supervising Physician Co-Signing Physician Notes PA Supervision Note: I did not personally see or examine the patient today, but I verified all moses points of SHERRY Benitez's assessment and plan with the following exceptions/additions: None Subjective Patient evaluated this morning. Doing well. Passing gas but no BM. Pain controlled. Did well with therapy and plans on d/c today. No fever, chills, chest pain, shortness of breath, abdominal pain , nausea or dysuria. Discussed to resume lisinopril for this evening but hold off on HCTZ-spi ronolactone until tomorrow. To watch diet/increase activity and should have close f/u on DM and counseling with PCP and he did not want to start any medications just yet. Review of Systems Review of Systems: All systems reviewed & are unremarkable except as noted in HPI & below Physical Exam Constitutional: WD/WN, vitals as above + morbidly obese and cooperative; no acute distress Eyes: + anicteric sclerae and PERRL ENMT: Ears: no hearing impairment and no EAC abnormality Neck: trachea midline (thick neck) Respiratory: normal respiratory effort, lungs clear to auscultation Auscultation: + diminished lung sounds Cardiovascular: RRR, no murmur, no edema Gastrointestinal (Abdomen): normal bowel sounds, soft, nontender, no hepatosplenomegaly Musculoskeletal: RIGHT knee dressing c/d/i hemovac with scant bloody drainage NVI DP, PT pulses palpable bilaterally 5/5 dorsiflexion/plantar flexion Neurologic: PERRL, EOMI, accommodation nl, no face palsy, no dysarthria Psychiatric: A+Ox3, euthymic affect Lymphatic: no cervical or axillary lymphadenopathy Results & Data Results & Data ([facility]) Vital Signs (Past 12 Hours) Vital Signs Temp Pulse Resp BP Pulse Ox 12/10/20 07:34 36.5 C 66 16 112/56 L 92 12/10/20 03:43 36.3 C L 73 12 133/80 96 12/09/20 22:48 36.7 C 57 L 17 133/73 93 Laboratory Results 12/10/20 12/10/20 12/10/20 Range/Units 08:06 07:55 07:55 WBC 16.96 H (4.8-10.8) K/uL RBC 4.61 L (4.7-6.1) M/uL Hgb 13.9 L (14.0-18.0) g/dL Hct 39.9 L (42-52) % MCV 86.6 (80-100) fL MCH 30.2 (25-34) pg MCHC 34.8 (32-36) g/dL RDW Std Deviation 42.8 (36.4-46.3) fL RDW Coeff of Rodriguez 13.5 (11.5-14.5) % Plt Count 320 (130-400) K/uL MPV 10.8 H (7.4-10.4) fL Sodium 133 L (136-145) mmol/L Potassium 3.7 (3.5-5.1) mmol/L Chloride 103 (98-107) mmol/L Carbon Dioxide 21 (21-32) mmol/L Anion Gap 8.0 (3-11) BUN 18 (7-18) mg/dl Creatinine 1.07 (0.6-1.4) mg/dl Est Cr Clr Drug Dosing 116.9 ml/min Est GFR ( Amer) 86.4 Est GFR (Non-Af Amer) 74.5 BUN/Creatinine Ratio 16.7 (10-20) Glucose 172 H (70-99) mg/dl POC Glucose 172 H (70-99) mg/dl Calcium 8.7 (8.5-10.1) mg/dl Triglycerides 85 (0-150) mg/dl Cholesterol 146 (0-200) mg/dl LDL Cholesterol, Calc 94 mg/dl VLDL Cholesterol, Calc 17 mg/dl HDL Cholesterol 35 mg/dl Cholesterol/HDL Ratio 4 COVID-19 Eval Order SARS-CoV-2, RNA, NAAT (NEGATIVE) 12/09/20 12/09/20 12/09/20 Range/Units 21:07 17:15 14:20 WBC (4.8-10.8) K/uL RBC (4.7-6.1) M/uL Hgb (14.0-18.0) g/dL Hct (42-52) % MCV (80-100) fL MCH (25-34) pg MCHC (32-36) g/dL RDW Std Deviation (36.4-46.3) fL RDW Coeff of Rodriguez (11.5-14.5) % Plt Count (130-400) K/uL MPV (7.4-10.4) fL Sodium (136-145) mmol/L Potassium (3.5-5.1) mmol/L Chloride (98-107) mmol/L Carbon Dioxide (21-32) mmol/L Anion Gap (3-11) BUN (7-18) mg/dl Creatinine (0.6-1.4) mg/dl Est Cr Clr Drug Dosing ml/min Est GFR ( Amer) Est GFR (Non-Af Amer) BUN/Creatinine Ratio (10-20) Glucose (70-99) mg/dl POC Glucose 224 H 177 H 158 H (70-99) mg/dl Calcium (8.5-10.1) mg/dl Triglycerides (0-150) mg/dl Cholesterol (0-200) mg/dl LDL Cholesterol, Calc mg/dl VLDL Cholesterol, Calc mg/dl HDL Cholesterol mg/dl Cholesterol/HDL Ratio COVID-19 Eval Order SARS-CoV-2, RNA, NAAT (NEGATIVE) 12/09/20 12/09/20 12/09/20 Range/Units 10:33 10:22 10:22 WBC (4.8-10.8) K/uL RBC (4.7-6.1) M/uL Hgb (14.0-18.0) g/dL Hct (42-52) % MCV (80-100) fL MCH (25-34) pg MCHC (32-36) g/dL RDW Std Deviation (36.4-46.3) fL RDW Coeff of Rodriguez (11.5-14.5) % Plt Count (130-400) K/uL MPV (7.4-10.4) fL Sodium (136-145) mmol/L Potassium (3.5-5.1) mmol/L Chloride (98-107) mmol/L Carbon Dioxide (21-32) mmol/L Anion Gap (3-11) BUN (7-18) mg/dl Creatinine (0.6-1.4) mg/dl Est Cr Clr Drug Dosing ml/min Est GFR ( Amer) Est GFR (Non-Af Amer) BUN/Creatinine Ratio (10-20) Glucose (70-99) mg/dl POC Glucose 150 H (70-99) mg/dl Calcium (8.5-10.1) mg/dl Triglycerides (0-150) mg/dl Cholesterol (0-200) mg/dl LDL Cholesterol, Calc mg/dl VLDL Cholesterol, Calc mg/dl HDL Cholesterol mg/dl Cholesterol/HDL Ratio COVID-19 Eval Order [facility] SARS-CoV-2, RNA, NAAT NEGATIVE (NEGATIVE) PG Care Time/CCT Total # of Minutes Spent Total Time Spent with Patient: Total time spent is greater than 50% in coordination of care (as documented) at patient's floor/unit and/or counseling patient: Coding Level of Care Code 87475 Subseq Obs Care Lvl 2 Diagnoses Arthritis of right knee M17.11 Hypertension I10 Diabetes mellitus E11.9 Pulmonary embolism I26.99 Sleep apnea G47.30 DVT prophylaxis Z29.9
[2020-12-10] MEDS: LABETALOL HCL 100 MG TAB PO SCH (09:16)
[2020-12-10] MEDS: DOCUSATE SODIUM 100 MG CAP PO SCH (09:17)
[2020-12-10] MEDS: INSULIN ASPART 100 UNITS/ML 3 ML PEN SC SCH ×2 (09:20→12:30)
--- NOTE | 2020-12-10 11:12 | Orthopedic Progress Note ---
Date of Service December 10, 2020 Assessment & Plan (1) Arthritis of right knee: Postop day 1 status post right total knee arthroplasty. PT/OT protocols. Weightbearing as tolerated. DVT prophylaxis-rivaroxaban, SCDs, HÉCTOR hose. Pain management-as written. Leukocytosis-patient currently asymptomatic. Likely secondary to surgical stress and or preoperative steroids. DC planning-patient is planning for home health services upon discharge. Admission and Anticipated Discharge Date Admission Date: December 09, 2020 Subjective Postop day 1 Patient sitting in the chair at the bedside. No complaints this morning. Pain is controlled. States that he has worked with physical therapy today and did well. I saw the patient ambulating in the hallway earlier. Denies shortness of breath, chest pain, lightheadedness. Physical Exam Physical Exam: Dressings are clean, dry, and intact. Calves are soft nontender. Neurovascular is intact. Toes are mobile. He has good dorsiflexion plantarflexion of the right foot. Hemovac drainage from the previous shift was 125 mL however nursing relates that they emptied it again this morning and it was 212 mL. Results & Data ([facility]) Vital Signs (Past 12 Hours) Vital Signs Temp Pulse Pulse Resp BP Pulse Ox 12/10/20 10:50 36.5 C 82 66 16 112/56 L 92 12/10/20 07:34 36.5 C 66 16 112/56 L 92 12/10/20 03:43 36.3 C L 73 12 133/80 96 Laboratory Results Laboratory Results WBC 16.96 K/uL (4.8-10.8) H 12/10/20 07:55 RBC 4.61 M/uL (4.7-6.1) L 12/10/20 07:55 Hgb 13.9 g/dL (14.0-18.0) L 12/10/20 07:55 Hct 39.9 % (42-52) L 12/10/20 07:55 MCV 86.6 fL (80-100) 12/10/20 07:55 MCH 30.2 pg (25-34) 12/10/20 07:55 MCHC 34.8 g/dL (32-36) 12/10/20 07:55 RDW Std Deviation 42.8 fL (36.4-46.3) 12/10/20 07:55 RDW Coeff of Rodriguez 13.5 % (11.5-14.5) 12/10/20 07:55 Plt Count 320 K/uL (130-400) 12/10/20 07:55 MPV 10.8 fL (7.4-10.4) H 12/10/20 07:55 Immature Gran % (Auto) 0.2 % 11/23/20 10:39 Neut % (Auto) 70.4 % 11/23/20 10:39 Lymph % (Auto) 14.8 % 11/23/20 10:39 [place] % (Auto) 12.4 % 11/23/20 10:39 Eos % (Auto) 1.8 % 11/23/20 10:39 Baso % (Auto) 0.4 % 11/23/20 10:39 Neut # (Auto) 6.78 K/uL (1.4-6.5) H 11/23/20 10:39 Lymph # (Auto) 1.42 K/uL (1.2-3.4) 11/23/20 10:39 [place] # (Auto) 1.19 K/uL (0.11-0.59) H 11/23/20 10:39 Eos # (Auto) 0.17 K/uL (0-0.5) 11/23/20 10:39 Baso # (Auto) 0.04 K/uL (0-0.2) 11/23/20 10:39 Immature Gran # (Auto) 0.02 K/uL (0.00-0.02) 11/23/20 10:39 PT 10.7 Seconds (9.0-12.0) 11/23/20 10:39 INR 1.1 (0.9-1.1) 11/23/20 10:39 APTT 25.1 Seconds (21.0-31.0) 11/23/20 10:39 PTT Ratio 1.0 11/23/20 10:39 Sodium 133 mmol/L (136-145) L 12/10/20 07:55 Potassium 3.7 mmol/L (3.5-5.1) 12/10/20 07:55 Chloride 103 mmol/L (98-107) 12/10/20 07:55 Carbon Dioxide 21 mmol/L (21-32) 12/10/20 07:55 Anion Gap 8.0 (3-11) 12/10/20 07:55 BUN 18 mg/dl (7-18) 12/10/20 07:55 Creatinine 1.07 mg/dl (0.6-1.4) 12/10/20 07:55 Est Cr Clr Drug Dosing 116.9 ml/min 12/10/20 07:55 Est GFR ( Amer) 86.4 12/10/20 07:55 Est GFR (Non-Af Amer) 74.5 12/10/20 07:55 BUN/Creatinine Ratio 16.7 (10-20) 12/10/20 07:55 Glucose 172 mg/dl (70-99) H 12/10/20 07:55 POC Glucose 172 mg/dl (70-99) H 12/10/20 08:06 Estimat Average Glucose 174 mg/dl 11/23/20 10:39 Hemoglobin A1c 7.7 % (4.5-5.6) H 11/23/20 10:39 Calcium 8.7 mg/dl (8.5-10.1) 12/10/20 07:55 Albumin 3.2 gm/dl (3.4-5.0) L 11/23/20 10:39 Triglycerides 85 mg/dl (0-150) 12/10/20 07:55 Cholesterol 146 mg/dl (0-200) 12/10/20 07:55 LDL Cholesterol, Calc 94 mg/dl 12/10/20 07:55 VLDL Cholesterol, Calc 17 mg/dl 12/10/20 07:55 HDL Cholesterol 35 mg/dl 12/10/20 07:55 Cholesterol/HDL Ratio 4 12/10/20 07:55 TSH 0.425 uIu/ml (0.300-4.500) 12/10/20 07:55 Urine Color Yellow 11/23/20 10:39 Urine Appearance Clear (Clear) 11/23/20 10:39 Urine pH 5.0 (4.5-7.5) 11/23/20 10:39 Ur Specific [place] 1.027 (1.000-1.030) 11/23/20 10:39 Urine Protein Negative (Negative) 11/23/20 10:39 Urine Glucose (UA) Negative (Negative) 11/23/20 10:39 Urine Ketones Trace (Negative) H 11/23/20 10:39 Urine Blood Negative (Negative) 11/23/20 10:39 Urine Nitrite Negative (Negative) 11/23/20 10:39 Urine Bilirubin Negative (Negative) 11/23/20 10:39 Urine Urobilinogen Negative (Negative) 11/23/20 10:39 Ur Leukocyte Esterase Negative (Negative) 11/23/20 10:39 COVID-19 Eval Order Covid19 IDNow [facility] 12/09/20 10:22 SARS-CoV-2, RNA, NAAT NEGATIVE (NEGATIVE) 12/09/20 10:22 Blood Type O Positive 11/23/20 10:39 Antibody Screen NEGATIVE 11/23/20 10:39 Impressions Knee X-Ray 12/09/20 14:30 RIGHT KNEE 2 VIEWS History: Right total knee arthroplasty. Degenerative arthritis. Postop. FINDINGS: The patient is status post a right total knee arthroplasty. The gutiérrez rdware is intact. No fracture or dislocation. Skin mata and surgical drains are in place. IMPRESSION: Right total knee arthroplasty. No evidence for hardware complication. ACT 112: Negative or not required by law. Electronically signed by: Dennis Blake M.D. 12/09/2020 2:56 PM
--- NOTE | 2020-12-11 08:19 | Discharge Summary ---
Date of Service date of discharge: December 10, 2020 date of admission: 12-09-20 Admission HPI Per Admitting Provider Abelardo is a 60 year old male who complains of Right knee pain, presents for pre-op evaluation prior to a Right total knee replacement by dr Louis at [facility]. He complains of pain, crepitus, decreased range of motion, instability and stiffness in the right knee. Currently the patient states that the symptoms are moderate-severe. The pain is described as aching, sharp and throbbing. The symptoms are aggravated by ascending stairs, daily activities, first steps while awake walking. Prior NSAIDs include IBU and Aleve. He has been treated with previous cortisone and visco injections in the past without much relief. he has had Pt and sometimes uses a knee brace. prior right knee scope in November 2009. Principal Diagnosis right knee arthritis Discharge Exam Constitutional WD/WN, vitals as above no acute distress Right knee: NVDI, calf SNT, negative crystal sign. DP palpable, able to wiggle toes/ankle movement without difficulty. dressing clean dry and intact. expected post-operative bruising noted. Discharge Data Allergies Allergy/AdvReac Type Severity Reaction Status Date / Time Sulfa (Sulfonamide Allergy Intermediate FEVER,HIVES Verified 12/09/20 10:34 Antibiotics) ,HALLUCINAT IONS latex Allergy Mild Rash Verified 12/09/20 10:34 celecoxib [From Celebrex] AdvReac Mild UPSET Verified 12/09/20 10:34 STOMACH/DIARRHEA Consultations 12/04/20 15:08 Consult Hospitalist Routine Procedures Performed Operation Date: 12/09/20 12:50 Actual Procedures p Right Total Knee Arthroplasty(Right) - Jesus Louis DO Ordered Studies 12/09/20 05:00 US - OR guided needle placemen Routine Diabetes Follow up Diabetes Follow-up Needed for Newly Diagnosed Diabetes Hospital Course (1) Arthritis of right knee: Postop day 1 status post right total knee arthroplasty. PT/OT protocols. Weightbearing as tolerated. DVT prophylaxis-rivaroxaban, SCDs, HÉCTOR hose. Pain management-as written. Leukocytosis-patient currently asymptomatic. Likely secondary to surgical stress and or preoperative steroids. DC planning-patient is planning for home health services upon discharge. Total Time Total Time Spent Total Time Spent (In Minutes): 20 Total Time Includes: Examination of the Patient, Discharge Planning and Medication Reconciliation Discharge Plan Discharge Items Patient Disposition: Home - Home Health Services Reason For Visit: Osteoarthritis, Right Knee Discharge Diagnosis: Right knee osteoarthritis Activity: Per Instructions section Weightbearing: Right weightbearing Weightbearing Comment: As tolerated with walker Non-emergency contact: Surgeon Call non-emergency contact if: you have any medication questions, your pain is not controlled, your temperature is above 101.5, your wound has increased redness and your wound has increased drainage Follow-up/Referrals: Larry Wilcox [Primary Care Provider] - Diet: Regular Addtl Attending Provider Instructions: ACTIVITY RECOMMENDATIONS: SELF CARE INSTRUCTIONS AFTER TOTAL KNEE REPLACEMENT A. You may need to continue a physical therapy program after discharge from the hospital. There are several options available to you. Your doctor will assist you in selecting the best one for you. 1. An out-patient facility 2 to 3 times a week for therapy or home therapy. 2. Continue working on all exercises taught to you in the hospital. Your goals should be to increase bending of your knee to 90 degrees and beyond and to fully straighten your knee. B. You may progress at your own pace from walking with a walker or crutches to a cane; then to no assistive devices. C. Make walking a part of your daily routine. Be up as much as comfortable with rest periods throughout the day. Rest with leg elevation is very important. Use the ice wrap frequently for the first 3-4 weeks. D. There are no restrictions on activities. You may ride in a car, shop, participate in pneumatic riveter and all social activities. E. Wear the long elastic stockings (HÉCTOR hose) 20 hours a day for 2 weeks after surgery. They can be removed several times a day for laundering and for a bath. F. You may shower, no tub baths until cleared by your doctor. SPECIAL CARE INSTRUCTIONS: VERY IMPORTANT TO READ AND REVIEW A. There are a few signs you need to watch for after you are home. Call [facility] if you notice any of the followin. Increased severe knee pain. Some pain is expected especially when you exercise. 2. Increased swelling in your leg or knee; pain or swelling of the calf muscle in either lower leg. 3. Any fluid drainage from the incision. 4. Shortness of breath or chest pain. B. Please call [facility] at if you have any concerns or questions about your operation or recovery. The doctor or his nurse will return your call promptly. C. You must take antibiotics before dental work, bladder, bowel or other surgery. Your doctor will provide you with a permanent care to carry describing this precaution. IMPORTANT: * REMEMBER TO TAKE RIVAROXIBAN, 10 MG, TWICE DAILY FOR 4 WEEKS UNLESS OTHERWISE DIRECTED. THIS IS YOUR BLOOD THINNER.. * CALL IF INCREASED PAIN, REDNESS, DRAINAGE OR FEVER GREATER THAT 101. * WEAR HÉCTOR HOSE 20 HOURS PER DAY FOR 2 WEEKS. * MICHAEL Dressing - This is a large suction dressing covering your incision. This will help pull any excess drainage from the wound and allow your incision to heal properly. You may shower with this if you can keep the unit outside of the shower. If any bleeding or leakage is noted please call your doctor's office. This will remain on your incision for 7 days and then should be removed. This can be done yourself or by the home nursing staff if applicable. The entire unit is disposable once removed. Once removed, keep incision clean and dry. If redness or drainage is noted, please call your surgeon. . FOLLOW UP VISIT: If appointment is not already scheduled: Please call [facility] to make a follow-up appointment for 2 weeks after your surgery at . Stand-Alone Forms: [facility], Opioid Pain Management, Smoking Cessation Medications and DC Order Prescriptions: New Xarelto 10 mg Tablet 10 mg PO DAILY 30 Days Qty: 30 RF: 0 acetaminophen 500 mg Tablet 1,000 mg PO Q8 14 Days Qty: 84 RF: 0 cefadroxil 500 mg capsule 500 mg PO BID Qty: 28 RF: 1 polyethylene glycol 3350 [Miralax] 17 gram powder in packet 17 g PO DAILY PRN (Reason: constipation) Qty: 5 RF: 0 oxycodone 5 mg Tablet 5 mg PO Q4H MDD 6 PRN (Reason: pain) Qty: 30 RF: 0 Continued ascorbic acid (vitamin C) [Vitamin C] 1,000 mg Tablet 1 g PO QAM RF: 0 spironolacton-hydrochlorothiaz 25-25 mg Tablet 1 tab PO QAM RF: 0 amlodipine 10 mg Tablet 10 mg PO QAM RF: 0 labetalol 100 mg Tablet 100 mg PO BID RF: 0 lisinopril 40 mg Tablet 40 mg PO QPM RF: 0 zinc 50 mg Capsule 50 mg PO QAM RF: 0 cholecalciferol (vitamin D3) [Vitamin D3] 125 mcg (5,000 unit) Tablet 125 mcg PO QAM RF: 0 Discontinued meloxicam 15 mg Tablet 15 mg PO QAM RF: 0 Discharge Orders: Discharge Order (Routine); Ordered 12/10/20 Ordered By: Rc Hanson/Other Patient Handouts: High Blood Sugar (Hyperglycemia), Managing Type 2 Diabetes, Exercise to Manage Your Blood Sugar, 5 Steps for Eating Healthier, Type 2 Diabetes, A1C Admission Data Admit Date/Time: 12/09/20 14:30 Attending Provider: Jesus Louis Admit Provider: Jesus Louis Primary Care Provider: Larry Wilcox Other Providers: Meghan Owusu ; [facility],Home Health Other Interventions: Discharge Summary Assessment (RN) Last Done: 12/10/20 10:50
== END 2020-12-10 13:48 | disposition home health service (06) ==
LOC: 3E 10:07 → ASU 10:07

== ENCOUNTER 2021-02-19 05:11 | Inpatient (IN) ==
--- NOTE | 2021-02-10 09:45 | Anesthesiology Consultation ---
Date of Service February 10, 2021 Assessment & Plan (1) Encounter for pre-operative examination: - COVID screening: Per assessment on 02/09: Travel screen negative, no known COVID-19 positive contacts or current COVID-19 related symptoms. Patient vaccinated. Surgeon arranging preop COVID testing. Awaiting results. - Cardiology office visit (11/10/20): " He had a syncopal episode while driving. He did not feel well that day and had some nausea and vomiting and diarrhea. He had a 24-hour Holter monitor which showed PVCs, he gives history of shortness of breath and fatigue, cardiac catheterization on 10/15/2020 showed normal coronaries. Patient denies any chest pain at this time to suggest angina.. Patient denies syncope or near syncope episodes. Patient denies heart palpitations." Continued on current regimen with recommendation to followup in one year. - PCP note (11/17/20): In reference to 11/2020 Right TKA: "low cardiac risk" - Right TKA (12/09/20): SAB at L4-L5 (x1 attempt) + PNB at [facility] - Check BSG AM DOS Chart Review Chart Review: Acceptable Risk for Surgery (pending evaluation AM DOS) and Patient NOT seen in Pre Admission Testing History Surgery Operation Date: 02/19/21 07:15 Proposed Procedures p Left Total Hip Arthroplasty - Miguel Michelle DO Height/Weight Height: 6 ft 4 in Weight: 149.232 kg Allergies Allergy/AdvReac Type Severity Reaction Status Date / Time Sulfa (Sulfonamide Allergy Intermediate Fever, Verified 02/10/21 09:27 Antibiotics) hives, hallucinations latex Allergy Mild Rash Verified 02/09/21 11:24 celecoxib [From Celebrex] AdvReac Mild Dyspepsia, Verified 02/10/21 09:27 diarrhea Medications Home Medications Medication Instructions Recorded Confirmed Last Taken amlodipine 10 mg PO QAM 11/19/20 02/09/21 12/09/20 07:00 ascorbic acid (vitamin C) [Vitamin 1 g PO QAM 11/19/20 02/09/21 12/09/20 07:00 C] cholecalciferol (vitamin D3) 125 mcg PO QAM 11/19/20 02/09/21 12/09/20 07:00 [Vitamin D3] labetalol 100 mg PO BID 11/19/20 02/09/21 12/09/20 07:00 lisinopril 40 mg PO QPM 11/19/20 02/09/21 12/08/20 07:00 spironolacton-hydrochlorothiaz 1 tab PO QAM 11/19/20 02/09/21 12/08/20 07:00 zinc 50 mg PO QAM 11/19/20 02/09/21 12/09/20 07:00 polyethylene glycol 3350 [Miralax] 17 g PO DAILY PRN #5 ea 12/10/20 02/09/21 Unknown meloxicam 15 mg PO QAM 02/09/21 02/09/21 Unknown Past Medical History Medical History (Updated 02/10/21 @ 09:42 by Cristina Bailey) Diabetes mellitus New diagnosis 11/2020 (hgba1c 7.7%) After diet/lifestyle modifications, updated hgba1c 01/28/21 improved at 6.2% > now diet controlled Hx of Choudhury's palsy 2018 Hypertension Morbid obesity Osteoarthritis Peripheral neuropathy Pulmonary embolism 2007 (? etiology) > anticoagulation since discontinued Sleep apnea CPAP Spinal stenosis Syncope 08/2020 (felt r/t BP medication/dehydration), s/p unremarkable cardiac workup, no recurrences Past Family History Family History Other No significant family history Past Surgical History Surgical History (Updated 02/10/21 @ 09:35 by Cristina Bailey) History of appendectomy History of arthroscopy Right knee x2, Left knee x1 History of cardiac cath 10/2020 (no stents) History of colonoscopy History of herniorrhaphy History of total right knee replacement Right TKA (12/09/20): SAB at L4-L5 (x1 attempt) + PNB at [facility] [place] teeth removed Social History Smoking Status: Never smoker Do You Dip or Chew Tobacco: No Hx Alcohol Use: No Hx Substance Use: No substance use type: does not use Testing Laboratory Results 01/28/21 HGBA1C 6.2% WBC 9.4 H/H 13.9/42.3 PLATELETS 369 SODIUM 138 POTASSIUM 3.9 CHLORIDE 104 CO2 27 BUN 13 CREATININE 0.9 GLUCOSE 137 PT 10.8 PTT 24 INR 1.07 UA negative Electrocardiogram Date: 08/31/20 Findings: + NSR @ (75bpm) Left axis deviation. Possible anterior infarct, age undetermined. Chest X-Ray Date: 08/31/20 Findings: + NAD Right costophrenic angle excluded (not captured on x-ray). The heart is mildly enlarged. Echocardiogram Date: 10/02/20 EF 55%. Mild concentric LVH. Mild RVD/RAD. Moderate LAD. Mild MR. Mild to moderate TR. Mildly increased PASP (PASP 44 mmHg). Physiologic pulmonic regur gitation. Aortic root enlargement. Stress Test Date: 10/02/20 Type: nuclear Lexiscan stress EKG was negative for myocardial ischemia. Nuclear images show medium sized, moderate, reversible inferior wall defect suggestive of ischemia. No evidence of myocardial infarction. Normal LV EF and normal wall motion. Moderately abnormal stress test. *See subsequent cardiac cath below -- normal coronaries Cardiac Catheterization Date: 10/15/20 No significant angiographic coronary artery disease. Normal left-sided filling pressure. No aortic stenosis.
--- NOTE | 2021-02-18 14:08 | History & Physical Report ---
Date of Service February 18, 2021 Assessment & Plan (1) Osteoarthritis of left hip: Schedule a left JESSICA for 02.19.21. All potential risks, benefits, complications, alternatives, and rehab have been discussed with the patient and he wishes to proceed. Plan for Xarelto 10 mg daily for post op DVT prophylaxis with patient's previous hx of PE. History of Present Illness Chief Complaint: left hip pain Primary Care Provider: Larry Wilcox This is a patient with a long hx of left hip and groin pain that was treated conservatively for left hip DJD. He has failed all conservative management. He is now being set up for surgical management. Allergies Allergy/AdvReac Type Severity Reaction Status Date / Time Sulfa (Sulfonamide Allergy Intermediate Fever, Verified 02/10/21 09:27 Antibiotics) hives, hallucinations latex Allergy Mild Rash Verified 02/09/21 11:24 celecoxib [From Celebrex] AdvReac Mild Dyspepsia, Verified 02/10/21 09:27 diarrhea Home Medications Medication Instructions Recorded Confirmed Type amlodipine 10 mg PO QAM 11/19/20 02/09/21 History ascorbic acid (vitamin C) [Vitamin 1 g PO QAM 11/19/20 02/09/21 History C] cholecalciferol (vitamin D3) 125 mcg PO QAM 11/19/20 02/09/21 History [Vitamin D3] labetalol 100 mg PO BID 11/19/20 02/09/21 History lisinopril 40 mg PO QPM 11/19/20 02/09/21 History spironolacton-hydrochlorothiaz 1 tab PO QAM 11/19/20 02/09/21 History zinc 50 mg PO QAM 11/19/20 02/09/21 History polyethylene glycol 3350 [Miralax] 17 g PO DAILY PRN #5 ea 12/10/20 02/09/21 Rx meloxicam 15 mg PO QAM 02/09/21 02/09/21 History Past Med/Surg History Medical History (Updated 02/18/21 @ 14:04 by Lencho Shen PA-C) Diabetes mellitus New diagnosis 11/2020 (hgba1c 7.7%) After diet/lifestyle modifications, updated hgba1c 01/28/21 improved at 6.2% > now diet controlled Hx of Choudhury's palsy 2019 Hypertension Morbid obesity Osteoarthritis Peripheral neuropathy Pulmonary embolism 2007 (? etiology) > anticoagulation since discontinued Sleep apnea CPAP Spinal stenosis Syncope 08/2020 (felt r/t BP medication/dehydration), s/p unremarkable cardiac workup, no recurrences Surgical History (Updated 02/10/21 @ 09:35 by Cristina Bailey) History of appendectomy History of arthroscopy Right knee x2, Left knee x1 History of cardiac cath 10/2020 (no stents) History of colonoscopy History of herniorrhaphy History of total right knee replacement Right TKA (12/09/20): SAB at L4-L5 (x1 attempt) + PNB at [facility] [place] teeth removed Family History Other No significant family history Social History (Updated 12/09/20 @ 16:37 by Nettie Benitez PA-C) Smoking Status: Never smoker Tobacco Type: Smokeless Tobacco (Dip or Chew) Age Quit Using Tobacco: 31; Second Hand Exposure: No; Hx Alcohol Use: No Hx Substance Use: No Preferred Language: Tajik Communication Ability: Effective County Treasurer Required: No Beliefs That Will Affect Care: None Current Living Situation: Spouse Feels Safe at Home: Yes Assistive Devices: Cane Physical Exam Constitutional: well developed and well nourished; no acute distress ENMT: external ear and nose normal, oropharynx normal Neck: trachea midline, no thyromegaly Respiratory: normal respiratory effort, lungs clear to auscultation Cardiovascular: Rate/Rhythm: regular rate and regular rhythm Gastrointestinal (Abdomen): normal bowel sounds, soft, nontender, no hepatosplenomegaly Musculoskeletal: Hip: + limited ROM of hip (left internal/external rotation), + joint line tenderness (left groin), + RONALD test positive (left) and + FADIR test positive (left); no deformity, no skin erythema and no ecchymosis Skin: no rashes, warm and dry Trauma: no evidence of skin trauma Neurologic: normal touch/pain/proprioception Psychiatric: A+Ox3, euthymic affect Speech: normal rate/rhythm/volume of speech Lymphatic: no cervical or axillary lymphadenopathy
[2021-02-19] MEDS ORDERED: METOCLOPRAMIDE HCL 10 MG TABLET PO SCH (06:00)
[2021-02-19] MEDS ORDERED: ACETAMINOPHEN 500 MG TAB PO SCH (06:00)
[2021-02-19] MEDS ORDERED: TRANEXAMIC ACID / 0.7% NACL 1,000 MG/100 ML BAG IV SCH (06:00)
[2021-02-19] MEDS ORDERED: LR 500ML BOLUS, THEN 15ML/HR IV SCH (06:00)
[2021-02-19] MEDS ORDERED: ROPIVACAINE 0.5% HCL/PF 150 MG, BUPIVACAINE 0.75% MPF 20 ML, EPINEPHrine 30MG/30ML (OR ... INSTIL SCH (06:00)
[2021-02-19] MEDS ORDERED: GABAPENTIN 600 MG DOSE PO SCH (06:00)
[2021-02-19] MEDS ORDERED: dexAMETHasone 4 MG TAB PO SCH (06:00)
[2021-02-19] MEDS ORDERED: LR 500ML BOLUS IV SCH (06:00)
[2021-02-19] MEDS ORDERED: FAMOTIDINE 20 MG TAB PO SCH (06:00)
[2021-02-19] MEDS ORDERED: BUPIVACAINE 0.5 % 5 MG/1 ML PF 10ML VIAL ONE (06:27)
[2021-02-19] MEDS ORDERED: MIDAZOLAM HCL 1 MG/ML 2ML VIAL ONE (06:44)
[2021-02-19] MEDS ORDERED: PROPOFOL IV EMULSION 10 MG/ML 20 ML VIAL IV ONE ×3 (06:44→10:58)
[2021-02-19] MEDS ORDERED: fentaNYL citrate 100 MCG/2 ML VIAL ONE ×2 (06:45→09:56)
[2021-02-19] MEDS ORDERED: ORTHO JOINT ANESTHETIC ONE (06:59)
--- NOTE | 2021-02-19 07:26 | History & Physical Bridge Note ---
Date of Service February 19, 2021 History & Physical Bridge Note I have examined the patient, reviewed the History & Physical and in the interval since the performance of the History & Physical I have noted the following changes of clinical significance: no changes noted
[2021-02-19] MEDS ORDERED: TRANEXAMIC ACID / 0.7% NACL 1000MG/100ML BAG IV ONE (07:30)
[2021-02-19] MEDS ORDERED: ePHEDrine sulfate 50 MG/ML AMP IV PRN (09:04)
[2021-02-19] MEDS ORDERED: ATROPINE SULFATE 0.1 MG/ML 10ML SYR IV PRN (09:04)
[2021-02-19] MEDS ORDERED: KETAMINE 50 MG/5 ML SYRINGE ONE (09:40)
[2021-02-19] MEDS ORDERED: ONDANSETRON INJ 2 MG/ML 2 ML VIAL ONE (10:22)
[2021-02-19] MEDS ORDERED: PHENYLEPHRINE 100MCG/ML 5ML SYR ONE (10:23)
[2021-02-19] MEDS ORDERED: ePHEDrine sulfate 50 MG/ML SYR ONE (10:23)
--- NOTE | 2021-02-19 11:11 | Post Operative Brief Note ---
Immediate Post Op Note v1 Date of Surgery February 19, 2021 Pre & Post Diagnosis Operation Date: 02/19/21 07:15 Pre-Op Diagnosis: Left hip osteoarthritis, Left Hip severe degenerative joint disease, left hip pain, BMI greater than 40 Post-Op Diagnosis: Left hip osteoarthritis, Left Hip severe degenerative joint disease, left hip pain, BMI greater than 40 I identified the patient and participated in the time-out.: Yes Procedure Operation Date: 02/19/21 07:15 Actual Procedures p 1. Left Total Hip Arthroplasty 2. Enhanced surgical difficulty due to large body habitus and BMI greater than 40 (Left) - Miguel Michelle DO Surgeon Miguel Michelle DO Manager Inspection Lencho Shen PA-C Estimated Blood Loss 400 Findings Consistent with Post-Op Diagnosis Specimens Bone and tissue left hip Drains Hemovac Drain Anesthesia Type Spinal MAC Complications Increased surgical difficulty secondary to large body habitus and BMI over 40 Disposition Accompanied Patient To Recovery: No Disposition: Recovery Room
--- NOTE | 2021-02-19 12:11 | XRay Report ---
SINGLE VIEW PELVIS; SINGLE VIEW LEFT HIP CLINICAL HISTORY: Postoperative examination. FINDINGS: An AP portable view of the hips and pelvis with a crosstable lateral portable view of the l eft hip are obtained. A bipolar left hip arthroplasty is in near-anatomic alignment. At least 2 corti connie lag screws transfix the acetabular cup. No acute fracture is identified. There are expected posto perative changes overlying the left hip including subcutaneous gas and soft tissue swelling. Moderate to advanced arthritic change and joint space narrowing is seen in the right hip. IMPRESSION: Expected postoperative findings status post left hip arthroplasty. No acute fracture is s een. ACT 112: Negative or not required by law. Electronically signed by: Jordan Mckeon M.D. 02/19/2021 12:10 PM
--- NOTE | 2021-02-19 12:41 | Anesthesiology Progress Note ---
Date of Service February 19, 2021 Anesthesia Post Procedure Vital Signs Vital Signs: Temp Pulse Resp BP Pulse Ox 02/19/21 12:26 36.6 C 73 16 114/73 95 02/19/21 12:16 36.6 C 71 16 114/73 95 02/19/21 12:06 36.6 C 71 15 107/67 96 02/19/21 11:56 36.5 C 76 12 113/75 95 02/19/21 11:46 36.5 C 87 15 111/69 98 02/19/21 11:36 36.4 C L 80 15 112/72 100 02/19/21 06:00 36.8 C 84 18 146/90 H 96 Pain Intensity Left Hip: Pain Intensity: 10 Transfer of Care Handoff Completed per policy Notes Mental Status: alert / awake / arousable Patient Amnestic to Procedure: Yes Nausea / Vomiting: adequately controlled Pain: adequately controlled Airway Patency, RR, SpO2: stable & adequate BP & HR: stable & adequate Hydration State: stable & adequate Neuraxial Anesthesia: was administered and sensory block is resolving Anesthetic Complications: no major complications apparent
[2021-02-19] MEDS ORDERED: ALUMINUM/MAGNESIUM SUSP 30 ML UDC PO PRN (12:50)
[2021-02-19] MEDS ORDERED: POLYETHYLENE (MIRALAX) 17 GM PACK PO PRN (12:50)
[2021-02-19] MEDS ORDERED: METOCLOPRAMIDE HCL INJ 5 MG/ML 2 ML VIAL IV PRN (12:50)
[2021-02-19] MEDS ORDERED: SODIUM CHLORIDE 0.9% 1000ML 1,000 ML IV SCH (12:50)
[2021-02-19] MEDS ORDERED: MAGNESIUM HYDROXIDE SUSP 30 ML UDC PO PRN (12:50)
[2021-02-19] MEDS ORDERED: NALOXONE HCL 0.4 MG/1 ML VIAL/CARP IV PRN (12:50)
[2021-02-19] MEDS ORDERED: bisacodyL 10 MG SUPP PR PRN (12:50)
[2021-02-19] MEDS ORDERED: KETOROLAC TROMETHAMINE 15 MG/ML VIAL IV PRN (12:50)
[2021-02-19] MEDS ORDERED: ONDANSETRON INJ 2 MG/ML 2 ML VIAL IV PRN (12:50)
[2021-02-19] MEDS ORDERED: HYDROmorphone INJ 0.5 MG/0.5 ML SYR IV PRN (12:50)
[2021-02-19] MEDS ORDERED: diphenhydrAMINE Capsule 25 MG CAP PO PRN (12:50)
[2021-02-19] MEDS ORDERED: TAMSULOSIN HCL 0.4 MG CAP PO PRN (12:50)
[2021-02-19] MEDS ORDERED: ceFAZolin 2000MG 2,000 MG/15 ML SYR IV SCH (12:50)
--- NOTE | 2021-02-19 14:08 | Operative Report (OR) ---
DATE OF PROCEDURE: 02/19/2021 PREOPERATIVE DIAGNOSES: 1. Left hip osteoarthritis. 2. Severe degenerative joint disease, left hip. 3. Body mass index over 40. POSTOPERATIVE DIAGNOSES: 1. Left hip osteoarthritis. 2. Severe degenerative joint disease, left hip. 3. Body mass index over 40. PROCEDURE: 1. Left total hip arthroplasty using a Jerry Trident II Tritanium cluster hole acetabular shell 60 mm, Trident X3 10-degree polyethylene insert, 6.5 mm low profile hex screws x2, Accolade II 127-degree neck angle stem size 11 and a Biolox Delta ceramic V40 femoral head, 36 mm +7.5 mm neck length. 2. Increased surgical difficulty due to large patient body habitus and BMI over 40, requiring greater surgical time and enhanced surgical difficulty. SURGEON: Miguel Michelle DO. SAFETY ENGINEER: Lencho Shen PA-C who was present for patient positioning, sterile prep and drape, management of retractors and instruments. He was present through the critical portions of the case including wound closure, application of sterile dressing and transport of the patient to recovery. ANESTHESIA: Spinal, MAC with intraarticular local. SPECIMENS: Bone and tissue, left hip. DRAINS: Hemovac x2. COMPLICATIONS: Enhanced surgical difficulty secondary to large body habitus and BMI over 40. BLOOD LOSS: 400 mL. PERTINENT HISTORY: This is a 60-year-old gentleman who has had chronic progressive and worsening left hip pain, loss of function and increased difficulty with ambulation for the last 2 years. He has attempted and failed conservative management including physician-directed home exercises, anti- inflammatories, rest, modification of activities, use of an assistive device and steroid injections. The patient failed all conservative measures. We scheduled for surgery as indicated. Radiographs demonstrate end-stage degenerative arthritis with [id number] arthropathy, marginal osteophytes, subchondral sclerosis, and subchondral cyst formation. All potential risks, benefits, complications, alternatives, rehab potential for incomplete relief of symptoms, need for further surgery, DVT, PE, , persistent pain, swelling, scarring, weakness, neurovascular injury, wound complications, hardware failure, nonunion, malunion, bone fracture were discussed with the patient. The patient decided to proceed with the procedure as indicated. DESCRIPTION OF PROCEDURE: The patient was taken to the Operating Suite and placed supine on the Operating Room table after identification of the consent and identification of the proper operative site the patient was sedated. The patient had previously received a spinal epidural anesthetic. The patient was then placed in the right lateral decubitus position with the affected side up and Stulberg positioning device then used to maintain lateral position of the patient. Increased surgical prep time was necessary due to the patient's large body habitus. All bony prominences were properly padded and protected. Axillary roll was placed with necessity for extra surgical staff greater than the normal amount used in the operative suite to lift the patient's body and position the axillary roll appropriately. The preoperative leg lengths were determined to be unequal due to osteoarthritis and loss of articular cartilage with leg length discrepancy as anticipated and then the left hip was then sterilely prepped and draped in the usual fashion. 10-blade scalpel incision was made laterally over the greater trochanter. The incision was deepened through the extensive subcutaneous tissue and increased surgical time greater than typical due to the patient's large body habitus was taken to achieve meticulous hemostasis with electrocautery. Further deepening of the incision through the abundant subcutaneous fat layer to the level of the fascia was performed with electrocautery and the iliotibial band was then incised with a 10 blade scalpel. Next, Charnley retractor was placed bother anteriorly and posteriorly at the level of the gluteus tendon after covering the skin with moistened surgical towels. Next, electrocautery was used to make an incision in the vastus lateralis and then the anterior sweep was made toward the anterior aspect of the patient along the course of the femoral neck and head. Abductor split was then completed in the gluteus medius with appropriate soft tissue retractors placed. The gluteus minimus and capsule were then incised with enhanced difficulty due to the depth of the incision required related to the patient's enlarged body habitus and subcutaneous fat. Then soft tissue was dissected anteriorly to visualize the anterior neck and head of the proximal femur. Next as the soft tissue and connective tissue including the joint capsule was dissected anteriorly, the lesser trochanter was clearly identified and hip was dislocated with significant force due to the patient's enlarged body habitus and weight of the limb. Hypertrophic osteophytes were noted circumferentially. The hip joint was noted to be noticeably tight. Next the sagittal saw was used to resect the proximal portion of the femoral neck and head approximately one fingerbreadth proximal to the lesser trochanter. Head was then removed and next the labrum was excised from the acetabulum with a 20 blade scalpel and long forceps. Next the incision was irrigated with pulsatile lavage and the pulvinar was then excised from the acetabulum. Appropriate retractors were placed anteriorly superiorly and posteriorly. Next initial acetabular reamer was placed 46 mm medialized near the medial wall and then sequential reaming was performed to size 60 mm. Trial cage was then placed and noted to be stable with excellent fit. Next the wound was irrigated with pulsatile lavage with bacitracin additive and 60 mm [place] Trident II Tritanium cluster hole acetabular shell was impacted and then 6.5 mm low profile hex screws x2 were used to stabilize the acetabular shell. Next Trident X3 10-degree polyethylene was impacted into the shell. Lap sponge was placed over to protect it. Next, attention was turned toward the proximal femur. Box osteotome was used to resect proximal portion of bone followed by first pass small reamer. Next, sequential broaching was performed up to size 11 and the 11 trial was placed followed by Biolox Delta ceramic V40 trial femoral head, 36 mm +7.5 mm neck length. Next, it was reduced and had excellent fit and feel with minimal shuck and excellent stability in all planes and range of motion. Leg lengths were restored to normal and then all trial implants were removed. The surgical incision was copiously irrigated with pulsatile lavage and Accolade II 127-degree neck angle stem size 11 final stem was impacted. Next, Biolox Delta ceramic V40 femoral head, 36 mm +7.5 mm neck length was impacted. The construct was reduced. Range of motion was performed and noted to be completely stable with excellent range of motion, improved to greater degree than prior to surgery. Two 10 [place]orean single Hemovac drains were placed exiting anterolaterally. Wound was irrigated with pulsatile lavage. Next a #5 FiberWire suture was used to close the capsule and gluteus minimum via two small bone tunnels made with 2.4 mm drill bit in the greater trochanter. After FiberWire closure was completed and noted to be stable then 10 Salv[place]orean drains were placed followed by closure of the vastus lateralis and the gluteus medius. This was closed with #1 Vicryl sutures. Next, the iliotibial band was closed using interrupted [id number] #1 Vicryl sutures taking extra time compared to typical surgical time due to the patient's enlarged body habitus and physical size and weight. Next, final irrigation was performed with pulsatile lavage and dermis was closed using buried interrupted 2-0 Vicryl suture. The skin was closed with skin mata. Sterile compressive dressing was applied. The patient was then placed supine and taken to recovery in stable condition. Job ID: [id number] [facility]
[2021-02-19] MEDS: ceFAZolin 3,000 MG in DEXTROSE 5% 50 ML IV SCH ×2 (15:18→23:45)
[2021-02-19] MEDS: ACETAMINOPHEN 500 MG TAB PO SCH ×2 (15:19→21:27)
[2021-02-19] MEDS: FERROUS GLUCONATE 324 MG TAB PO SCH (18:04)
[2021-02-19] MEDS: LABETALOL HCL 100 MG TAB PO SCH (19:58)
[2021-02-19] MEDS: DOCUSATE SODIUM 100 MG CAP PO SCH (19:59)
[2021-02-19] MEDS ORDERED: SENNA 8.6 MG TAB PO SCH (21:00)
[2021-02-19] MEDS ORDERED: lisinopril 40 MG TAB PO SCH (21:00)
[2021-02-19] MEDS: oxyCODONE HCL IR 5 MG TAB (IMMEDIATE RELEASE) PO PRN (21:43)
[2021-02-20] MEDS: ACETAMINOPHEN 500 MG TAB PO SCH (05:42)
[2021-02-20 06:18] LABS: Basophils # (auto) 0.02 K/uL (0-0.2); Basophils % (auto) 0.1 %; Hematocrit (blood only) 33.7 % (42-52); Hemoglobin 10.9 g/dL (14.0-18.0); Immature Granulocytes # (auto) 0.04 K/uL (0.00-0.02); Immature Granulocytes % (auto) 0.2 %; Lymphocytes # (auto) 1.38 K/uL (1.2-3.4); Lymphocytes % (auto) 7.8 %; Mean Corpuscular Hemoglobin 27.9 pg (25-34); Mean Corpuscular Hgb Conc 32.3 g/dL (32-36); Mean Corpuscular Volume 86.2 fL (80-100); Mean Platelet Volume 10.1 fL (7.4-10.4); Monocytes # (auto) 2.29 K/uL (0.11-0.59); Monocytes % (auto) 12.9 %; Neutrophils # (auto) 14.01 K/uL (1.4-6.5); Platelet Count 293 K/uL (130-400); RDW Coefficient of Variation 14.2 % (11.5-14.5); RDW Standard Deviation 44.4 fL (36.4-46.3); Red Blood Count 3.91 M/uL (4.7-6.1); White Blood Count 17.74 K/uL (4.8-10.8)
[2021-02-20 06:51] LABS: BUN Creatinine Ratio 20.9 (10-20); Calcium 8.3 mg/dl (8.5-10.1); Creatinine Clr Calc Pharmacy 106.4 ml/min; Est GFR (African American) 77.5 ml/min; Est GFR (Non-African American) 66.9 ml/min; Potassium 3.9 mmol/L (3.5-5.1)
[2021-02-20] MEDS: oxyCODONE HCL IR 5 MG TAB (IMMEDIATE RELEASE) PO PRN ×2 (07:59→13:04)
--- NOTE | 2021-02-20 08:46 | Orthopedic Progress Note ---
Date of Service February 20, 2021 Assessment & Plan (1) Osteoarthritis of left hip: Postop day #1 status post left total hip arthroplasty PT/OT DVT prophylaxisXarelto 10 mg daily x14 days then transition to aspirin 81 mg twice daily for 4 weeks. HÉCTOR stockings. Pain controlwe will discharge home with 3 days of OxyContin as well as as needed oxycodone. Discharge planningplan for discharge home today with home health nursing. We will discontinue the Hemovac prior to discharge. Admission and Anticipated Discharge Date Admission Date: February 19, 2021 Supervising Physician Co-Signing Physician Notes Patient seen and examined. Agree with SHERRY Shen's note as above. Currently the patient's Prevena VAC is not functioning. He reports that the unit hit the ground during his therapy session and the hose became dislodged. Post was replaced, but open the wound will hold suction. The VAC was troubleshooting. The dressing is intact without any suction leaks when hooked to wall suction. Problem is localized to the connection between the canister and the VAC unit itself. Nursing is going to replace the VAC canister. If this does not solve the leak, we will have to replace the unit. Plan for discharge home later today. Nursing to discontinue Hemovac drain prior to discharge. Subjective Doing well. States he does not have any pain within the left hip. The muscles of his thigh are sore today. He ambulated last evening without any difficulties. He is a concern of being discharged home on oxycodone only. With his total knee 3 months ago, he had a significant increase in pain approximately 2 to 3 days postop. Physical Exam Constitutional: well developed and well nourished; no acute distress ENMT: external ear and nose normal, oropharynx normal Neck: trachea midline, no thyromegaly Respiratory: normal respiratory effort, lungs clear to auscultation Cardiovascular: Rate/Rhythm: regular rate and regular rhythm Gastrointestinal (Abdomen): normal bowel sounds, soft, nontender, no hepatosplenomegaly Musculoskeletal: Hip: + surgical incision (Left: Prevena dressing in place and functioning.) and + surgical drain present (Approximately 100 cc of drainage); no deformity, no skin erythema and no ecchymosis Skin: no rashes, warm and dry Trauma: no evidence of skin trauma Neurologic: normal touch/pain/proprioception Psychiatric: A+Ox3, euthymic affect Speech: normal rate/rhythm/volume of speech Lymphatic: no cervical or axillary lymphadenopathy Results & Data ([facility]) Vital Signs (Past 12 Hours) Vital Signs Temp Pulse Resp BP Pulse Ox 02/20/21 07:37 36.4 C L 75 20 102/64 94 02/20/21 02:49 36.6 C 77 18 112/72 96 02/19/21 23:19 36.6 C 73 16 120/77 97
[2021-02-20] MEDS ORDERED: MULTIVITAMIN TAB PO SCH (09:00)
[2021-02-20] MEDS ORDERED: SPIRONOLACTONE/HCTZ 25-25 PO SCH (09:00)
[2021-02-20] MEDS ORDERED: RIVAROXABAN 10 MG TABLET PO SCH (09:00)
[2021-02-20] MEDS ORDERED: amLODIPine BESYLATE 5 MG TAB PO SCH (09:00)
[2021-02-20] MEDS ORDERED: CHOLECALCIFEROL 1,000 UNITS 25 MCG TAB PO SCH (09:00)
[2021-02-20] MEDS ORDERED: ZINC SULFATE 220 MG CAPSULE PO SCH (09:00)
[2021-02-20] MEDS ORDERED: ASCORBIC ACID 500 MG TAB PO SCH (09:00)
[2021-02-20] MEDS: FERROUS GLUCONATE 324 MG TAB PO SCH (10:03)
[2021-02-20] MEDS: LABETALOL HCL 100 MG TAB PO SCH (10:04)
[2021-02-20] MEDS: DOCUSATE SODIUM 100 MG CAP PO SCH (10:04)
--- NOTE | 2021-02-21 08:16 | Discharge Summary ---
Date of Service February 21, 2021 Admission HPI Per Admitting Provider This is a patient with a long hx of left hip and groin pain that was treated conservatively for left hip DJD. He has failed all conservative management. He is now being set up for surgical management. Principal Diagnosis Left hip osteoarthritis Discharge Exam Constitutional well developed and well nourished; no acute distress ENMT external ear and nose normal, oropharynx normal Neck trachea midline, no thyromegaly Respiratory normal respiratory effort, lungs clear to auscultation Cardiovascular Rate/Rhythm: regular rate and regular rhythm Gastrointestinal (Abdomen) normal bowel sounds, soft, nontender, no hepatosplenomegaly Musculoskeletal Hip: + surgical incision (Left: Prevena dressing in place and functioning.) and + surgical drain present (Approximately 100 cc of drainage); no deformity, no skin erythema and no ecchymosis Skin no rashes, warm and dry Trauma: no evidence of skin trauma Neurologic normal touch/pain/proprioception Psychiatric A+Ox3, euthymic affect Speech: normal rate/rhythm/volume of speech Lymphatic no cervical or axillary lymphadenopathy Discharge Data Allergies Allergy/AdvReac Type Severity Reaction Status Date / Time Sulfa (Sulfonamide Allergy Intermediate Fever, Verified 02/19/21 05:58 Antibiotics) hives, hallucinations latex Allergy Mild Rash Verified 02/19/21 05:58 celecoxib [From Celebrex] AdvReac Mild Dyspepsia, Verified 02/19/21 05:58 diarrhea Procedures Performed Operation Date: 02/19/21 07:15 Actual Procedures p Left Total Hip Arthroplasty(Left) - Miguel Michelle DO Hospital Course (1) Osteoarthritis of left hip: Patient was admitted and underwent the noted procedure. He was ambulating well the evening of postop day #0. On postop day #1, his pain was controlled. He participated in physical therapy and had done well. His Hemovac drainage remain low. The Hemovac was removed and the patient was discharged home on postop day #1. Postop day #1 status post left total hip arthroplasty PT/OT DVT prophylaxisXarelto 10 mg daily x14 days then transition to aspirin 81 mg twice daily for 4 weeks. HÉCTOR stockings. Pain controlwe will discharge home with 3 days of OxyContin as well as as needed oxycodone. Discharge planningplan for discharge home today with home health nursing. We will discontinue the Hemovac prior to discharge. Total Time Total Time Spent Total Time Spent (In Minutes): 20 Total Time Includes: Examination of the Patient, Discharge Planning and Medication Reconciliation Discharge Plan Discharge Items Patient Disposition: Home - Home Health Services Reason For Visit: Osteoarthritis, Left Hip Discharge Diagnosis: Left hip osteoarthritis Activity: Per Instructions section Weightbearing: Full weightbearing Non-emergency contact: Surgeon Call non-emergency contact if: your pain is not controlled, your pain is worsening and your temperature is above 101 Follow-up/Referrals: Larry Wilcox [Primary Care Provider] - Diet: Regular Addtl Attending Provider Instructions: ACTIVITY RECOMMENDATIONS: SELF CARE INSTRUCTIONS AFTER TOTAL HIP REPLACEMENT Until the incision and soft tissues around your hip have healed, there is a possibility that the hip prosthesis could dislocate. A. Observe the following precautions to prevent dislocation: 1. Don't bend your hip greater than 90 degrees. 2. Avoid crossing your legs or ankles while standing or lying. 3. Sit with your feet placed 6 inches apart. 4. When sitting, keep your knees below your hips. Sit on a firm surface, avoid deep, soft chairs and couches. Use an elevated toilet seat in the bathroom. 5. Don't bend over at the waist. Use a long handled shoehorn and a sock aid to help you put on your shoes and socks. A university internship can help you sweet pickled fruit maker objects that are too high or too low to reach. 6. Keep car riding to a minimum for at least one month after surgery. B. Your balance may be shaky for a while. Use crutches or a walker until directed by your doctor. C. Use hand rails when walking on stairs. D. Wear low heeled shoes with non-slip soles. E. Be sure that your floors are free of things that could trip you - throw rugs, electrical cords, small objects. Avoid wet and waxed floors, especially with crutches and canes. F. Try to walk several times a day with rest periods between. G. Continue with all the exercises taught to you in the hospital. Again, make walking a part of your daily routine. H. It is okay to shower if minimal to no drainage from incision. No baths. Do not soak wound. I. Physical Therapy as instructed by your Physician. J. Prevena dressing: You have a Prevena dressing on your surgical wound. It will remain in place for 7 days from surgery. You will be provided with a booklet with the do's and don'ts with the dressing in place. After 7 days, the dressing may be removed. If there is drainage from the surgical incision, you may cover the wound with dry dressings be sure not to remove the Zipline dressin g that adhered to the skin next to the incision. K. You have a Zipline closure system over your incision. It will remain in place for 14 days after your surgery. If you have a Silverlon or Prevena dressing or a large bandaid-like silver dressing over your surgical incision, make sure the Zipline under the dressing remains in place after its removal. SPECIAL CARE INSTRUCTIONS: VERY IMPORTANT TO READ AND REVIEW A. You may still be at risk for phlebitis and blood clots. 1. Wear surgical stockings (HÉCTOR hose) for one month, 20 hours daily, after surgery to improve circulation and reduce swelling. 2. Take Xarelto (blood thinning medications), as directed by your doctor. Once the Xarelto is completed, start aspirin 81 mg twice daily for 4 weeks. 3. Have a pro-time (blood test) drawn according to your doctor's instructions. B. We encourage and will assist you in choosing a home-health agency of your choice. Home health nurses and therapists will monitor your temperature, wound healing and progress in exercise and walking. Home health nurses may also draw the blood for the pro-time test. They may instruct you in decreasing or increasing the amount of Coumadin you take. C. You must take antibiotics before having dental work, bladder, bowel and other surgery. Your doctor will provide you with a permanent card to carry describing precautions. D. Call [facility] if you have a temperature of 101 or greater, redness or swelling around the incision, cloudy drainage from incision, or sudden increase in pain in your hip, not relieved by your regular pain medication. E. Please call the office at if you have any concerns or questions about your operation or recovery. FOLLOW UP VISIT: If appointment is not already scheduled: Please call [facility] to make a follow-up appointment for 2 weeks after your surgery at . Pending Studies at Discharge: No Stand-Alone Forms: My [facility], Opioid Pain Management, Smoking Cessation Medications and DC Order Prescriptions: New Xarelto 10 mg Tablet 10 mg PO DAILY Qty: 14 RF: 0 acetaminophen 500 mg Tablet 1,000 mg PO Q8 Qty: 100 RF: 0 oxycodone 5 mg Tablet 5 - 10 mg PO Q4H PRN (Reason: pain) Qty: 20 RF: 0 oxycodone [OxyContin] 10 mg tablet,oral only,ext.rel.12 hr 10 mg PO BID Qty: 6 RF: 0 Continued ascorbic acid (vitamin C) [Vitamin C] 1,000 mg Tablet 1 g PO QAM RF: 0 spironolacton-hydrochlorothiaz 25-25 mg Tablet 1 tab PO QAM RF: 0 amlodipine 10 mg Tablet 10 mg PO QAM RF: 0 labetalol 100 mg Tablet 100 mg PO BID RF: 0 lisinopril 40 mg Tablet 40 mg PO QPM RF: 0 zinc 50 mg Capsule 50 mg PO QAM RF: 0 cholecalciferol (vitamin D3) [Vitamin D3] 125 mcg (5,000 unit) Tablet 125 mcg PO QAM RF: 0 polyethylene glycol 3350 [Miralax] 17 gram powder in packet 17 g PO DAILY PRN (Reason: constipation) Qty: 5 RF: 0 Discontinued meloxicam 15 mg Tablet 15 mg PO QAM RF: 0 Discharge Orders: Discharge Order (Routine); Ordered 02/20/21 Ordered By: Lencho Hanson/Other Patient Handouts: Understanding Deep Vein Thrombosis Admission Data Admit Date/Time: 02/19/21 11:52 Attending Provider: Miguel Michelle Admit Provider: Miguel Michelle Primary Care Provider: Larry Wilcox Other Providers: [facility]Home Health Other Interventions: Discharge Summary Assessment (RN) Last Done: 02/20/21 12:27
== END 2021-02-20 14:30 | disposition home health service (06) | DRG 470 ==
LOC: 3E 05:11 → ASU 05:11 → OBSVTOIN 11:52

== ENCOUNTER 2022-10-05 09:21 | Observation (INO) ==
--- NOTE | 2022-09-23 10:55 | History & Physical Report ---
Date of Service September 23, 2022 date of surgery: 10/05/22 Procedure: Left Total Knee Arthroplasty Surgeon: Jesus Louis Assessment & Plan (1) Arthritis of knee, left: Plan: Further care discussed with patient and at this point in time has failed conservative measures and would like to proceed with a left total knee replacement. Plan on discharge will be home with home health physical therapy. DVT prophylaxis with TEDs, SCDs and Xarelto has history of PE. Patient will have follow up appointment in our office two weeks post op for re-evaluation. Patient otherwise has no other questions or concerns. The risks and benefits have been discussed including, but not limited to, risk of infection, nerve injury, stiffness, loss of motion, failure to improve, etc. Reasonable outcomes and options of treatment were discussed. An explanation of appropriate alternatives to the procedure that may be advantageous were discussed and their risks and benefits, as well as the risks and benefits of not proceeding with treatment. I offered to answer any additional inquiries concerning the treatment involved. All the patient's questions were answered. The patient is agreeable, understanding of the treatment plan and alternatives, and wishes to proceed with the treatment plan. History of Present Illness Chief Complaint: left knee pain Primary Care Provider: Larry Zhou is a 62 year old male who complains of left knee pain, presents for pre-op evaluation prior to a left total knee replacement. He complains of pain, decreased range of motion and stiffness in his left knee. Currently the patient states that the symptoms are moderate-severe and rated as 6/10. The pain is described as aching, sharp and throbbing. The symptoms are aggravated by ascending stairs, daily activities, first steps while awake walking. Prior NSAIDs include IBU and Aleve. He has been treated with previous cortisone and visco injections in the past without much relief. he has had Pt and sometimes uses a knee brace. he has recently undergone Right TKA in November 2020 and a left total hip replacement by Dr Michelle in February 2021. He initially had surgery canceled last fall due to a toe infection but this has cleared and is ready to proceed with surgery. Allergies Allergy/AdvReac Type Severity Reaction Status Date / Time Sulfa (Sulfonamide Allergy Intermediate Fever, Verified 07/06/22 07:40 Antibiotics) hives, hallucinations latex Allergy Mild Rash Verified 07/06/22 07:40 metformin AdvReac Intermediate somnolence, Verified 07/06/22 07:40 fatigue celecoxib [From Celebrex] AdvReac Mild Dyspepsia, Verified 07/06/22 07:40 diarrhea Home Medications Medication Instructions Recorded Confirmed Type amlodipine 10 mg tablet 10 mg PO QAM 11/19/20 07/06/22 History ascorbic acid (vitamin C) 1,000 mg 1 g PO QAM 11/19/20 07/06/22 History tablet (Vitamin C) cholecalciferol (vitamin D3) 125 125 mcg PO QAM 11/19/20 07/06/22 History mcg (5,000 unit) tablet (Vitamin D3) lisinopril 40 mg tablet 40 mg PO QPM 11/19/20 07/06/22 History spironolactone 25 1 tab PO QAM 11/19/20 07/06/22 History mg-hydrochlorothiazide 25 mg tablet zinc 50 mg capsule 50 mg PO QAM 11/19/20 07/06/22 History acetaminophen 500 mg tablet 1,000 mg PO UD PRN Pain 11/26/21 07/01/22 History polyethylene glycol 3350 17 gram 17 g PO UD PRN constipation 11/26/21 07/01/22 History oral powder packet (Miralax) dulaglutide 3 mg/0.5 mL 3 mg subcut WK 05/20/22 07/06/22 History subcutaneous pen injector (Trulicity) empagliflozin 25 mg tablet 25 mg PO PM 05/20/22 07/06/22 History (Jardiance) sulindac 150 mg tablet 150 mg PO BID 05/20/22 07/06/22 History tramadol 50 mg tablet 50 mg PO Q6H PRN Pain 05/20/22 07/06/22 History Past Med/Surg History Medical History Diabetes mellitus NIDDM Hx of Choudhury's palsy 2018, 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 etiology) > anticoagulation since discontinued Sleep apnea CPAP (compliant) Spinal stenosis Syncope 08/2020 (felt r/t BP medication/dehydration), s/p unremarkable cardiac workup, no recurrences Follows with Dr. Goldberg Surgical History History of appendectomy History of arthroscopy Right knee x2, Left knee x1 History of cardiac cath 10/2020 (no stents) History of colonoscopy History of herniorrhaphy History of left hip replacement Left JESSICA (02/19/21): SAB at L3-L4 (2 attempts) at [facility]. No issues per post-op anesthesia progress note. History of total left hip arthroplasty (~03/10/21) History of total right knee replacement Right TKA (12/09/20): SAB at L4-L5 (x1 attempt) + PNB at [facility] Right Total Knee Arthroplasty(Right) utilizing Garcia & Nephew journey 2 patient matched total knee Damien plasty size 9 femur 8 tibia with 70 x 10 mm stem 12 polyethylene 38 oval patella [place] teeth removed Family History Sister Family history of reaction to anesthesia slow to wake Other No significant family history Social History Smoking Status: Never smoker Tobacco Type: Smokeless Tobacco (Dip or Chew) Age Quit Using Tobacco: 31; Second Hand Exposure: No; Hx Alcohol Use: Yes Alcohol type: hard liquor Alcohol Intake Frequency: Monthly or Less Alcohol Intake Frequency Comment: last drink reported 2 years ago Hx Substance Use: No Preferred Language: Surinamese Communication Ability: Effective Burrer Marker Axle Required: No Beliefs That Will Affect Care: None marital status: Current Living Situation: Spouse Current Living Situation Comment: SON Feels Safe at Home: Yes Assistive Devices: CPAP, Glasses and Hearing Aid - Bilateral Review of Systems Review of Systems: All systems reviewed & are unremarkable except as noted in HPI & below Constitutional: no fever, no chills and no sweats Respiratory: no cough and no dyspnea Cardiovascular: no chest pain, no dyspnea and no orthopnea Gastrointestinal: no abdominal pain, no nausea and no vomiting Musculoskeletal: as per Subjective / HPI Physical Exam Physical Exam: HT: 76 in WT: 151.4kg Constitutional: WD/WN, vitals as above no acute distress Respiratory: normal respiratory effort, lungs clear to auscultation no respiratory distress, no labored breathing and does not use accessory muscles Cardiovascular: RRR, no murmur, no edema Gastrointestinal (Abdomen): normal bowel sounds, soft, nontender, no hepatosplenomegaly Musculoskeletal: Knee: + knee abnormal to inspection (LEFT KNEE- ), + effusion (+1 effusion), + surgical incision (well healed portals), + limited ROM of knee (ROM 0/3/110), + knee ROM with crepitation, + joint line tenderness (medial joint line) and + Tiff's sign positive; no deformity, no skin erythema, no ecchymosis, no valgus laxity, no varus laxity, anterior drawer test negative, Patricia's sign negative and pivot shift test negative Results & Data Results & Data ([facility]) Diagnostic Findings Left Knee X-ray: left knee series confirm advanced degenerative changes to the left knee, greatest medial compartments and patellofemoral joint, showing joint space narrowing, osteophyte formation and subchondral sclerosis. no acute bony pathology noted.
--- NOTE | 2022-09-30 09:18 | Anesthesiology Consultation ---
Date of Service September 30, 2022 Assessment & Plan (1) Encounter for pre-operative examination: - COVID screening: Per assessment on 09/30: No known COVID-19 positive contacts or current COVID-19 related symptoms. Travel screen negative. Patient vaccinated. At surgeon discretion if preop Covid testing being done. - Check BSG AM DOS - Outpatient joint assessment: Pt currently scheduled for inpatient pathway. If surgeon requests review for outpatient joint pathway, patient is not recommended candidate for outpatient joint program from anesthesia standpoint. - S/P Left JESSICA (02/19/21): SAB at L3-L4 (2 attempts) at [facility]. No issues per post- op anesthesia progress note. - S/P Left 2nd toe distal amputation (07/06/22): MAC at [facility] Chart Review Chart Review: Acceptable Risk for Surgery and Patient NOT seen in Pre Admission Testing History Surgery Operation Date: 10/05/22 11:55 Proposed Procedures p Left Total Knee Arthroplasty - Jesus Louis DO Height/Weight Height: 6 ft 3 in Weight: 145.15 kg Allergies Allergy/AdvReac Type Severity Reaction Status Date / Time Sulfa (Sulfonamide Allergy Intermediate Fever, Verified 09/30/22 07:31 Antibiotics) hives, hallucinations latex Allergy Mild Rash Verified 09/30/22 07:31 metformin AdvReac Intermediate somnolence, Verified 09/30/22 07:31 fatigue celecoxib [From Celebrex] AdvReac Mild Dyspepsia, Verified 09/30/22 07:31 diarrhea Medications Home Medications Medication Instructions Recorded Confirmed Last Taken amlodipine 10 mg tablet 10 mg PO QAM 11/19/20 09/30/22 07/06/22 ascorbic acid (vitamin C) 1,000 mg 1 g PO QAM 11/19/20 09/30/22 07/05/22 tablet (Vitamin C) cholecalciferol (vitamin D3) 125 125 mcg PO QAM 11/19/20 09/30/22 07/05/22 mcg (5,000 unit) tablet (Vitamin D3) lisinopril 40 mg tablet 40 mg PO QPM 11/19/20 09/30/22 07/05/22 spironolactone 25 1 tab PO QAM 11/19/20 09/30/22 07/05/22 mg-hydrochlorothiazide 25 mg tablet zinc 50 mg capsule 50 mg PO QAM 11/19/20 09/30/22 07/05/22 acetaminophen 500 mg tablet 1,000 mg PO UD PRN Pain 11/26/21 09/30/22 Unknown polyethylene glycol 3350 17 gram 17 g PO UD PRN constipation 11/26/21 09/30/22 Unknown oral powder packet (Miralax) dulaglutide 3 mg/0.5 mL 3 mg subcut Q7D 05/20/22 09/30/22 07/05/22 subcutaneous pen injector (Trulicity) empagliflozin 25 mg tablet 25 mg PO HS 05/20/22 09/30/22 07/05/22 (Jardiance) sulindac 150 mg tablet 150 mg PO BID 05/20/22 09/30/22 07/03/22 tramadol 50 mg tablet 50 mg PO Q6H PRN Pain 05/20/22 09/30/22 07/04/22 Past Medical History Medical History Diabetes mellitus NIDDM Hx of Choudhury's palsy 2018, 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 etiology) > anticoagulation since discontinued Sleep apnea CPAP (compliant) Spinal stenosis Syncope 08/2020 (felt r/t BP medication/dehydration), s/p unremarkable cardiac workup, no recurrences Follows with Dr. Goldberg Past Family History Family History Sister Family history of reaction to anesthesia slow to wake Other No significant family history Past Surgical History Surgical History (Updated 09/30/22 @ 09:18 by Cristina Bailey) History of appendectomy History of arthroscopy Right knee x2, Left knee x1 History of cardiac cath 10/2020 (no stents), [facility]; f/u dr goldberg, [facility] cardio History of colonoscopy History of herniorrhaphy History of left hip replacement Left JESSICA (02/19/21): SAB at L3-L4 (2 attempts) at [facility]. No issues per post-op anesthesia progress note. History of total right knee replacement Right TKA (12/09/20): SAB at L4-L5 (x1 attempt) + PNB at [facility] Right Total Knee Arthroplasty(Right) utilizing Garcia & Nephew journey 2 patient matched total knee Damien plasty size 9 femur 8 tibia with 70 x 10 mm stem 12 polyethylene 38 oval patella Hx of foot surgery Left 2nd toe distal amputation (07/06/22): MAC at [facility] [place] teeth removed Social History Smoking Status: Never smoker Do You Dip or Chew Tobacco: Yes (hx-quit at age 31: advised) Hx Alcohol Use: Yes Alcohol type: hard liquor alcohol intake frequency: holidays/special occasions only Hx Substance Use: No substance use type: does not use Testing Laboratory Results 09/07/22 WBC 9.3 H/H 16.4/48.3 PLATELETS 281 SODIUM 137 POTASSIUM 4.3 CHLORIDE 105 CO2 27 BUN 17 CREATININE 0.8 GLUCOSE 123 UA 3+ glucose, negative nitrite/leuk est HGBA1C 6.9% Electrocardiogram Date: 06/30/22 NSR @ 78 bpm Left axis deviation Inferior infarct Chest X-Ray Date: 07/01/22 Stable size of cardiac silhouette. Tortuosity and uncoiling of the thoracic aorta, unchanged. No acute process in the chest, radiographically. Other Testing Echocardiogram Date: 10/02/20 EF 55%. Mild concentric LVH. Mild RVD/RAD. Moderate LAD. Mild MR. Mild to moderate TR. Mildly increased PASP (PASP 44 mmHg). Physiologic pulmonic regu rgitation. Aortic root enlargement. Stress Test Date: 10/02/20 Type: nuclear Lexiscan stress EKG was negative for myocardial ischemia. Nuclear images show medium sized, moderate, reversible inferior wall defect suggestive of ischemia. No evidence of myocardial infarction. Normal LV EF and normal wall motion. Moderately abnormal stress test. *See subsequent cardiac cath below -- normal coronaries Cardiac Catheterization Date: 10/15/20 No significant angiographic coronary artery disease. Normal left-sided filling pressure. No aortic stenosis.
[~2022-10-05 09:21] MED LIST changes: -BUPIVACAINE 0.25% 30 ML VIAL ONE; -BUPIVACAINE 0.5 % 5 MG/1 ML PF 10ML VIAL ONE; +CeleBREX 200 MG CAP PO SCH; +DEXAMETHASONE SOD INJ 4 MG/ML VIAL ONE; +LIDOCAINE 2% MPF LOCAL 5 ML VIAL INFIL ONE; +MIDAZOLAM HCL 1 MG/ML 2ML VIAL ONE; +ONDANSETRON INJ 2 MG/ML 2 ML VIAL ONE; +PROPOFOL IV EMULSION 10 MG/ML 20 ML VIAL IV ONE; +ROPIVACAINE 0.5% 5 MG/ML 30 ML VIAL ONE; -ROPIVACAINE 0.5% HCL/PF 150 MG, BUPIVACAINE 0.75% MPF 20 ML, EPINEPHrine 30MG/30ML (OR ... INFIL SCH; +fentaNYL citrate 100 MCG/2 ML VIAL ONE; -oxyCODONE HCL 10 MG TABCR (OxyCONTIN) PO SCH
--- NOTE | 2022-10-05 10:08 | History & Physical Bridge Note ---
Date of Service October 05, 2022 History & Physical Bridge Note I have examined the patient, reviewed the History & Physical and in the interval since the performance of the History & Physical I have noted the following changes of clinical significance: no changes noted
[2022-10-05] MEDS ORDERED: ORTHO JOINT ANESTHETIC ONE (12:06)
[2022-10-05] MEDS ORDERED: ATROPINE SULFATE 0.1 MG/ML 10ML SYR IV PRN (12:07)
[2022-10-05] MEDS ORDERED: ePHEDrine sulfate 50 MG/ML AMP IV PRN (12:07)
[2022-10-05] MEDS ORDERED: ONDANSETRON INJ 2 MG/ML 2 ML VIAL IV PRN ×2 (12:07→16:32)
[2022-10-05] MEDS ORDERED: HYDROmorphone INJ 1 MG/ML SYRINGE IV PRN (12:07)
[2022-10-05] MEDS ORDERED: MIDAZOLAM HCL 1 MG/ML 2ML VIAL ONE (12:55)
--- NOTE | 2022-10-05 14:06 | Operative Report ---
Post Operative Report Pre & Post Diagnosis Operation Date: 10/05/22 11:55 Pre-Op Diagnosis: Left Knee Osteoarthritis Post-Op Diagnosis: Left Knee Osteoarthritis I identified the patient and participated in the time-out.: Yes Procedure Operation Date: 10/05/22 11:55 Actual Procedures p Left Total Knee Arthroplasty(Left) utilizing Garcia & NephTelensius journey 2 patient matched size 9 femur 8 tibia 10 polyethylene 38 oval patella- Jesus Louis DO Surgeon Jesus Louis DO Pipe Fitter Supervisor Maintenance Rc POWELL Estimated Blood Loss 10 Findings Consistent with Post-Op Diagnosis Patient presents with severe end-stage DJD left knee varus alignment subchondral sclerosis 10 degree flexion contracture marginal osteophytes subchondral sclerosis subchondral cystic changes with moderate to large effusion Specimens Bone and cartilage Drains Medium bore Hemovac Anesthesia Type MAC Spinal Regional Complications none Disposition Accompanied Patient To Recovery: No Disposition: Recovery Room Indications Patient presents with severe end-stage DJD having failed attempted corticosteroid injection viscosupplementation relative rest activity modification above intraoperative findings were noted Description of Procedure After proper prepping and draping of the left lower extremity anterior midline incision was made over the region of the extensor extensor mechanism after meticulous hemostasis was obtained and maintained in subcutaneous tissues a medial parapatellar incision was made The patella was subluxed lateralward the medial lateral gutter were cleaned from any hypertrophic synovitis and scar tissue of the distal femoral block was placed and the distal femoral osteotomy cut was made subsequently the chamfers anterior and posterior osteotomy cuts were made utilizing the 4-in-1 block the tibia was subsequently subluxed anteriorward medial and ateral meniscal remnants were excised in their entirety remnants of the anterior and posterior cruciate ligaments were excised in their entirety excellent exposure of the proximal tibia was obtained the tibial osteotomy guide was placed on the proximal tibial osteotomy cut was made once again the knee was irrigated with copious amounts of sterile saline solution the patella was subsequently everted lateralward thickened scar tissue around the patella was removed the patella was subsequently cut utilizing a freehand technique and was drilled prepared for final preparation and placement of patella socially flexion-extension gaps were checked and the equal and symmetric trials were placed to the appropriate femoral and tibial trials with poly-spacer being placed for equal flexion and extension gaps and full range of motion including extension to 0 and flexion to 140 the trial components after having been taken to recovery range of motion was subsequently removed meticulous hemostasis was obtained and maintained subsequently a knee block injection of joint cocktail including ropivacaine 0.5% 150 mg. Bupivacaine 0.5% epinephrine 1-200,030 mL's toradol 30 mg dexamethasone 4 mg ketamine 10 mg clonidine 100 micrograms normal saline solution 30 mg was infiltrated into the soft tissues of the posterior knee medial lateral gutters and periosteal synovium special attention was paid to protect neurovascular structures at all times subsequently trial components having been removed the knee was irrigated with sterile saline solution. debris was removed the proximal tibia was subsequently prepared and was made ready for the placement of the tibial component tibial component was also cemented and tamped into position the femoral component was subsequently placed and cemented in the position the patellar component was subsequently cemented in position because hemostasis once again obtained and maintained wound having been thoroughly irrigated with debridement and debridement lavage was performed as well as a medial parapatellar incision closed with #1 Vicryl in interrupted fashion subcutaneous was closed with #2 Vicryl skin was closed with skin clips. PA-C was necessary for prepping and drapping as well as wound closure of deep fascia Sub cutaneous tissue and skin and was necessary for the case. A sterile compressive dressing was placed patient was taken to recovery in stable condition of report dictated by Heriberto I attest to the content of the Intraoperative Record and any orders documented therein. Any exceptions are noted below.Due to the complex nature of the procedure, the entire surgery was performed with the operational assistance of Rc POWELL. The operations administrative assistant, under direct supervision, was involved in the actual performance of all aspects of the surgical procedure including hemost asis, tissue retraction and incision, instrument management, patient positioning, and wound closure. I attest to the content of the Intraoperative Record and any orders documented therein. Any exceptions are noted below.
[2022-10-05] MEDS ORDERED: PHARMACY GLYCEMIC MGMT CONSULT PRN (15:34)
--- NOTE | 2022-10-05 15:50 | Anesthesiology Progress Note ---
Date of Service October 05, 2022 Anesthesia Post Procedure Vital Signs Vital Signs: Temp Pulse Pulse Resp BP BP Pulse Ox 10/05/22 15:45 78 24 111/70 95 10/05/22 15:35 98.1 F 83 12 107/58 L 98 10/05/22 15:25 80 12 109/69 93 10/05/22 15:15 70 12 101/69 96 10/05/22 15:05 76 12 118/71 97 10/05/22 14:58 98.1 F 83 12 104/84 95 10/05/22 09:56 97.5 F L 72 20 107/80 97 O2 Del Method O2 Flow Rate 10/05/22 15:45 Room Air 10/05/22 15:35 Room Air 10/05/22 15:25 Room Air 10/05/22 15:15 Oxymask 4 10/05/22 15:05 Oxymask 6 10/05/22 14:58 Oxymask 6 10/05/22 09:56 Room Air Transfer of Care Handoff Completed per policy Notes Mental Status: alert / awake / arousable and participated in evaluation Patient Amnestic to Procedure: Yes Nausea / Vomiting: adequately controlled Pain: adequately controlled Airway Patency, RR, SpO2: stable & adequate BP & HR: stable & adequate Hydration State: stable & adequate Neuraxial Anesthesia: was administered and sensory block is resolving Anesthetic Complications: no major complications apparent and Pt Satisfied with anesthetic care
[2022-10-05] MEDS ORDERED: CARBOHYDRATES FOR HYPOGLYCEMIA PO PRN (16:00)
[2022-10-05] MEDS ORDERED: GLUCOSE 10 TAB/TUBE PO PRN (16:00)
[2022-10-05] MEDS ORDERED: GLUCOSE 40% GEL 15 GM TUBE PO PRN (16:00)
[2022-10-05] MEDS ORDERED: GLUCAGON FOR INJ 1 MG VIAL IM PRN (16:00)
[2022-10-05] MEDS ORDERED: DEXTROSE 50% 50 ML SYRINGE IV PRN (16:00)
[2022-10-05] MEDS ORDERED: NON-FORMULARY MEDICATION (Dulaglutide [Trulicity] 3 mg/0.5 mL Pen Injector) SQ SCH (16:32)
[2022-10-05] MEDS ORDERED: MAGNESIUM HYDROXIDE SUSP 30 ML UDC PO PRN (16:32)
[2022-10-05] MEDS ORDERED: bisacodyL 10 MG SUPP PR PRN (16:32)
[2022-10-05] MEDS ORDERED: POLYETHYLENE (MIRALAX) 17 GM PACK PO PRN (16:32)
[2022-10-05] MEDS ORDERED: HYDROmorphone INJ 0.5 MG/0.5 ML SYR IV PRN (16:32)
[2022-10-05] MEDS ORDERED: NALOXONE HCL 0.4 MG/1 ML VIAL/CARP IV PRN (16:32)
[2022-10-05] MEDS ORDERED: diphenhydrAMINE 50 MG/ML VIAL IV PRN (16:32)
--- NOTE | 2022-10-05 16:32 | XRay Report ---
XR knee LT 1 or 2V routine CLINICAL HISTORY: Postoperative evaluation. COMPARISON: None FINDINGS: Alignment of the total left knee arthroplasty is anatomic. There is no periprosthetic frac ture or unexpected radiopaque foreign body. Drains are in place. IMPRESSION: Expected findings following total left knee arthroplasty. ACT 112: Negative or not required by law. Electronically signed by: George Triana M.D. 10/05/2022 4:31 PM
[2022-10-05] MEDS ORDERED: LANTUS PER UNIT CHARGE SQ ONE (17:00)
[2022-10-05] MEDS: SODIUM CHLORIDE 0.9% 1000ML 1,000 ML IV SCH (17:01)
[2022-10-05] MEDS: INSULIN ASPART PER UNIT SC SCH ×2 (17:25→20:58)
[2022-10-05] MEDS: oxyCODONE HCL IR 5 MG TAB (IMMEDIATE RELEASE) PO PRN (18:24)
[2022-10-05] MEDS: ceFAZolin 2000MG 2,000 MG/15 ML SYR IV SCH (19:47)
[2022-10-05] MEDS: DOCUSATE SODIUM 100 MG CAP PO SCH (19:50)
[2022-10-05] MEDS: ACETAMINOPHEN 500 MG TAB PO SCH (21:00)
[2022-10-05] MEDS ORDERED: SENNA 8.6 MG TAB PO SCH (21:00)
[2022-10-05] MEDS ORDERED: EMPAGLIFLOZIN 25 MG TAB PO SCH (21:00)
[2022-10-05] MEDS ORDERED: lisinopril 40 MG TAB PO SCH (21:00)
[2022-10-06] MEDS: oxyCODONE HCL IR 5 MG TAB (IMMEDIATE RELEASE) PO PRN ×2 (00:32→08:37)
[2022-10-06] MEDS: SODIUM CHLORIDE 0.9% 1000ML 1,000 ML IV SCH (03:51)
[2022-10-06] MEDS: ceFAZolin 2000MG 2,000 MG/15 ML SYR IV SCH (03:57)
[2022-10-06] MEDS: ACETAMINOPHEN 500 MG TAB PO SCH (05:52)
--- NOTE | 2022-10-06 06:42 | Orthopedic Progress Note ---
Date of Service October 06, 2022 Assessment & Plan (1) History of total left knee replacement: Plan: POD #1 s/p Left TKA pt/ot dvt proph with HÉCTOR/SCD/Xarelto plan for d/c home with HHPT, will have home nursing d/c hemovac tomorrow Admission and Anticipated Discharge Date Admission Date: October 05, 2022 Subjective POD #1 s/p Left TKA Review of Systems Constitutional: no fever, no chills and no sweats Respiratory: no cough and no dyspnea Cardiovascular: no chest pain and no dyspnea Gastrointestinal: no abdominal pain, no nausea and no vomiting Physical Exam Physical Exam: Vital Signs Temp 36.5 C 10/06/22 03:34 Pulse 63 10/06/22 03:34 Resp 16 10/06/22 03:34 BP 118/73 10/06/22 03:34 Pulse Ox 93 10/06/22 03:34 O2 Del Method Room Air 10/06/22 03:34 O2 Flow Rate 4 10/05/22 15:15 Intake & Output 10/05/22 10/05/22 10/06/22 06:59 18:59 06:59 Intake Total 1372.5 / 2672.5 1300 / 2672.5 Output Total 10 / 2460 2450 / 2460 Balance 1362.5 / 212.5 -1150 / 212.5 Weight 147.1 kg Intake: IV 172.5 / 1172.5 1000 / 1172.5 Lactated Ringe r's 1,000 ml @ 15 0 / 0 mls/hr IV .Q24 H [facility] Rx#: [id number] Sodium Chlorid e 0.9% 1000ML 1, 1000 / 1000 000 ml @ 100 m ls/hr IV .Q10H [facility] Rx#:[id number] Tranexamic Aci d / 0.7% NaCl 1, 100 / 100 000 mg In 100 ml @ 600 mls/hr IV TODAY@0600 [facility] Rx#:[id number] ceFAZolin 3000 MG 72.5 ml @ 130 72.5 / 72.5 mls/hr IV PREO P [facility] Rx#: [id number] IV Perioperative 1200 / 1200 Oral 300 / 300 Output: Urine 1725 / 1725 Estimated Blood Loss 10 / 10 Drain Output 725 / 725 Left Knee Hemo vac 725 / 725 Other: Weight Measureme nt Method Standing Scale Musculoskeletal: Left Leg: NVDI, calf SNT, negative crystal sign. DP palpable, able to wiggle toes/ankle movement without difficulty. dressing clean dry and intact. Results & Data ([facility]) Vital Signs (Past 12 Hours) Vital Signs Temp Pulse Resp BP Pulse Ox O2 Del Method 10/06/22 03:34 36.5 C 63 16 118/73 93 Room Air 10/05/22 19:45 Room Air 10/05/22 22:35 36.5 C 82 16 135/67 93 Room Air 10/05/22 19:28 36.6 C 76 18 127/72 93 Room Air Laboratory Results Laboratory Results POC Glucose 273 mg/dl (70-99) H 10/05/22 20:31 SARS-CoV-2, RNA, NAAT NEGATIVE (NEGATIVE) 10/05/22 09:40 Blood Type O Positive 10/05/22 09:52 Antibody Screen NEGATIVE 10/05/22 09:52 Impressions Knee X-Ray 10/05/22 15:33 XR knee LT 1 or 2V routine CLINICAL HISTORY: Postoperative evaluation. COMPARISON: None FINDINGS: Alignment of the total left knee arthroplasty is anatomic. There is no periprosthetic fracture or unexpected radiopaque foreign body. Drains are in place. IMPRESSION: Expected findings following total left knee arthroplasty. ACT 112: Negative or not required by law. Electronically signed by: George Triana M.D. 10/05/2022 4:31 PM
[2022-10-06 07:42] LABS: Hematocrit (blood only) 42.4 % (42.0-52.0); Hemoglobin 14.4 g/dl (14.0-18.0); Mean Corpuscular Hemoglobin 28.7 pg (25.0-34.0); Mean Corpuscular Volume 84.5 fL (80.0-100.0); Mean Platelet Volume 10.5 fL (9.4-12.4); Platelet Count 266 K/uL (130-400); RDW Coefficient of Variation 13.7 % (11.5-14.5); RDW Standard Deviation 42.3 fL (36.4-46.3); Red Blood Count 5.02 M/uL (4.70-6.10); White Blood Count 16.42 K/ul (4.8-10.8)
[2022-10-06 07:46] LABS: BUN Creatinine Ratio 23.2 (10-20); Calcium 8.6 mg/dl (8.5-10.1); Creatinine Clr Calc Pharmacy 118.3 ml/min; Est GFR (African American) 93.6 ml/min; Est GFR (Non-African American) 80.7 ml/min; Potassium 4.1 mmol/L (3.5-5.1)
[2022-10-06] MEDS: DOCUSATE SODIUM 100 MG CAP PO SCH (08:28)
[2022-10-06] MEDS: INSULIN ASPART PER UNIT SC SCH ×2 (08:30→12:23)
[2022-10-06] MEDS ORDERED: MULTIVITAMIN TAB PO SCH (09:00)
[2022-10-06] MEDS ORDERED: RIVAROXABAN 10 MG TABLET PO SCH (09:00)
[2022-10-06] MEDS ORDERED: LANTUS PER UNIT CHARGE SQ SCH (09:00)
[2022-10-06] MEDS ORDERED: CHOLECALCIFEROL 5,000 UNITS 125 MCG TAB PO SCH (09:00)
[2022-10-06] MEDS ORDERED: ASCORBIC ACID 500 MG TAB PO SCH (09:00)
[2022-10-06] MEDS ORDERED: ZINC SULFATE 220 MG CAPSULE PO SCH (09:00)
[2022-10-06] MEDS ORDERED: SPIRONOLACTONE/HCTZ 25-25 PO SCH (09:00)
[2022-10-06] MEDS ORDERED: amLODIPine BESYLATE 5 MG TAB PO SCH (09:00)
--- NOTE | 2022-10-07 12:55 | Discharge Summary ---
Date of Service October 07, 2022 Admission HPI Per Admitting Provider Abelardo is a 62 year old male who complains of left knee pain, presents for pre-op evaluation prior to a left total knee replacement. He complains of pain, decreased range of motion and stiffness in his left knee. Currently the patient states that the symptoms are moderate-severe and rated as 6/10. The pain is described as aching, sharp and throbbing. The symptoms are aggravated by ascending stairs, daily activities, first steps while awake walking. Prior NSAIDs include IBU and Aleve. He has been treated with previous cortisone and visco injections in the past without much relief. he has had Pt and sometimes u ses a knee brace. he has recently undergone Right TKA in November 2020 and a left total hip replacement by Dr Michelle in February 2021. He initially had surgery canceled last fall due to a toe infection but this has cleared and is ready to proceed with surgery. Admission Exam Per Admitting Provider Physical Exam: HT: 76 in WT: 151.4kg Constitutional: WD/WN, vitals as above no acute distress Respiratory: normal respiratory effort, lungs clear to auscultation no respiratory distress, no labored breathing and does not use accessory muscles Cardiovascular: RRR, no murmur, no edema Gastrointestinal (Abdomen): normal bowel sounds, soft, nontender, no hepatosplenomegaly Musculoskeletal: Knee: + knee abnormal to inspection (LEFT KNEE- ), + effusion (+1 effusion), + surgical incision (well healed portals), + limited ROM of knee (ROM 0/3/110), + knee ROM with crepitation, + joint line tenderness (medial joint line) and + Tiff's sign positive; no deformity, no skin erythema, no ecchymosis, no valgus laxity, no varus laxity, anterior drawer test negative, Patricia's sign negative and pivot shift test negative Principal Diagnosis Left knee osteoarthritis Discharge Data Allergies Allergy/AdvReac Type Severity Reaction Status Date / Time Sulfa (Sulfonamide Allergy Intermediate Fever, Verified 10/05/22 09:59 Antibiotics) hives, hallucinations latex Allergy Mild Rash Verified 10/05/22 09:59 metformin AdvReac Intermediate somnolence, Verified 10/05/22 09:59 fatigue celecoxib [From Celebrex] AdvReac Mild Dyspepsia, Verified 10/05/22 09:59 diarrhea Procedures Performed Operation Date: 10/05/22 11:55 Actual Procedures p Left Total Knee Arthroplasty(Left) - Jesus Mcqueen DO Ordered Studies 10/05/22 05:00 US - OR guided needle placemen Routine Hospital Course (1) History of total left knee replacement: Patient:ABELARDO ARMIJO Admit Date:10/05/22 MR#:[id number] Att Phy:Jesus Mcuqeen,Deloris.OLilli Acct ID:[id number] [place] Phy:Larry Wilcox M.D. Date:1960 Fam Phy: Age:62 Location:3E Sex:M Room/Bed:[facility] cc: ~ *NOTICE TO RECEIVING CONSTITUTION PARTY/AGENCY This information is strictly Confidential and protected under [place] law. [place] law prohibits you from making any further disclosure of this information unless further disclosure is expressly permitted by the written consent of the person to whom it pertains or is authorized by law. A general authorization for the release of medical or other information is not sufficient for this purpose. Hospital accepts no responsibility if the information is made available to any other person, INCLU DING THE PATIENT. Date of Service October 06, 2022 Assessment & Plan (1) History of total left knee replacement: Plan: POD #1 s/p Left TKA pt/ot dvt proph with HÉCTOR/SCD/Xarelto plan for d/c home with HHPT, will have home nursing d/c hemovac tomorrow Admission and Anticipated Discharge Date Admission Date: October 05, 2022 Subjective POD #1 s/p Left TKA Review of Systems Constitutional: no fever, no chills and no sweats Respiratory: no cough and no dyspnea Cardiovascular: no chest pain and no dyspnea Gastrointestinal: no abdominal pain, no nausea and no vomiting Physical Exam Physical Exam: Vital Signs Temp 36.5 C 10/06/22 03:34 Pulse 63 10/06/22 03:34 Resp 16 10/06/22 03:34 BP 118/73 10/06/22 03:34 Pulse Ox 93 10/06/22 03:34 O2 Del Method Room Air 10/06/22 03:34 O2 Flow Rate 4 10/05/22 15:15 Intake & Output 10/05/22 10/05/22 10/06/22 06:59 18:59 06:59Intake Total 1372.5 / 2672.5 1300 / 2672.5 Output Total 2459 2450 / 2460 Balance 1362.5 / 212.5 -1150 / 212.5 Weight 147.1 kg Intake: IV 172.5 / 1172.5 1000 / 1172.5 Lactated Ringe r's 1,000 ml @ 15 0 / 0 mls/hr IV .Q24 H [facility] Rx#: [id number] Sodium Chlorid e 0.9% 1000ML 1, 1000 / 1000 000 ml @ 100 m ls/hr IV .Q10H [facility] Rx#:[id number] Tranexamic Aci d / 0.7% NaCl 1, 100 / 100 000 mg In 100 ml @ 600 mls/hr IV TODAY@0600 [facility] Rx#:[id number] ceFAZolin 3000 MG 72.5 ml @ 130 72.5 / 72.5 mls/hr IV PREO P [facility] Rx#: [id number] IV Perioperative 1200 / 1200 Oral 300 / 300 Output: Urine 1725 / 1725 Estimated Blood Loss Drain Output 725 / 725 Left Knee Hemo vac 725 / 725 Other: Weight Measureme nt Method Standing Scale Musculoskeletal: Left Leg: NVDI, calf SNT, negative crystal sign. DP palpable, able to wiggle toes/ankle movement without difficulty. dressing clean dry and intact. Results & Data ([facility]) Vital Signs (Past 12 Hours) Vital Signs Temp Pulse Resp BP Pulse Ox O2 Del Method 10/06/22 03:34 36.5 C 63 16 118/73 93 Room Air 10/05/22 19:45 Room Air 10/05/22 22:35 36.5 C 82 16 135/67 93 Room Air 10/05/22 19:28 36.6 C 76 18 127/72 93 Room Air Laboratory Results Laboratory Results POC Glucose 273 mg/dl (70-99) H 10/05/22 20:31 SARS-CoV-2, RNA, NAAT NEGATIVE (NEGATIVE) 10/05/22 09:40 Blood Type O Positive 10/05/22 09:52 Antibody Screen NEGATIVE 10/05/22 09:52 Impressions Knee X-Ray 10/05/22 15:33 XR knee LT 1 or 2V routine CLINICAL HISTORY: Postoperative evaluation. COMPARISON: None FINDINGS: Alignment of the total left knee arthroplasty is anatomic. There is no periprosthetic fracture or unexpected radiopaque foreign body. Drains are in place. IMPRESSION: Expected findings following total left knee arthroplasty. ACT 112: Negative or not required by law. Electronically signed by: George Triana M.D. 10/05/2022 4:31 PM Signed By: <Electronically signed by Robert Jacques PA-C> 10/06/22 0729 <Electronically signed by Jus Castaneda M.D.> 10/06/22 1736 Created:10/06/22 0641 Total Time Total Time Spent Total Time Spent (In Minutes): 5 Discharge Plan Discharge Items Patient Disposition: Home - Home Health Services Reason For Visit: Left Knee Osteoarthritis Discharge Diagnosis: left total knee replacement Activity: Per Instructions section Non-emergency contact: Surgeon Call non-emergency contact if: you have any medication questions, your temperature is above 101, your wound has increased redness, your wound has increased drainage and your wound pain has increased Follow-up/Referrals: Larry Wilcox [Primary Care Provider] - Diet: Regular Addtl Attending Provider Instructions: ACTIVITY RECOMMENDATIONS: SELF CARE INSTRUCTIONS AFTER TOTAL KNEE REPLACEMENT A. You may need to continue a physical therapy program after discharge from the hospital. There are several options available to you. Your doctor will assist you in selecting the best one for you. 1. An out-patient facility 2 to 3 times a week for therapy or home therapy. 2. Continue working on all exercises taught to you in the hospital. Your goals should be to increase bending of your knee to 90 degrees and beyond and to fully straighten your knee. B. You may progress at your own pace from walking with a walker or crutches to a cane; then to no assistive devices. C. Make walking a part of your daily routine. Be up as much as comfortable with rest periods throughout the day. Rest with leg elevation is very important. Use the ice wrap frequently for the first 3-4 weeks. D. There are no restrictions on activities. You may ride in a car, shop, participate in time study clerk and all social activities. E. Wear the long elastic stockings (HÉCTOR hose) 20 hours a day for 2 weeks after surgery. They can be removed several times a day for laundering and for a bath. F. You may shower, no tub baths until cleared by your doctor. SPECIAL CARE INSTRUCTIONS: VERY IMPORTANT TO READ AND REVIEW A. There are a few signs you need to watch for after you are home. Call [facility] if you notice any of the followin. Increased severe knee pain. Some pain is expected especially when you exercise. 2. Increased swelling in your leg or knee; pain or swelling of the calf muscle in either lower leg. 3. Any fluid drainage from the incision. 4. Shortness of breath or chest pain. B. Please call [facility] at if you have any concerns or questions about your operation or recovery. The doctor or his nurse will return your call promptly. C. You must take antibiotics before dental work, bladder, bowel or other surg marysol. Your doctor will provide you with a permanent care to carry describing this precaution. IMPORTANT: * REMEMBER TO TAKE ASPIRIN, 81 MG, TWICE DAILY FOR 4 WEEKS UNLESS OTHERWISE DIRECTED. THIS IS YOUR BLOOD THINNER. * HIGH RISK PATIENTS MAY BE PRESCRIBED A STRONGER BLOOD THINNER. THIS WILL BE PROVIDED AT DISCHARGE. * CALL IF INCREASED PAIN, REDNESS, DRAINAGE OR FEVER GREATER THAT 101. * WEAR HÉCTOR HOSE 20 HOURS PER DAY FOR 2 WEEKS. * YOU MAY HAVE A LARGE BAND-AID LIKE DRESSING (SILVERON). THIS WILL REMAIN ON YOUR INCISION FOR 7 DAYS, THEN CAN BE REMOVED. IF INCISION IS LEAKING THROUGH DRESSING, CALL THE OFFICE . DRESSING INSTRUCTIONS * MICHAEL Dressing- This is a large suction dressing covering your incision. This will help pull any excess drainage from the wound and allow your incision to heal properly. You may shower with this if you can keep the unit outside of the shower. If any bleeding or leakage is noted please call your doctor's office. This will remain on your incision for 7 days and then should be removed. This can be done yourself or by the home nursing staff if applicable. The entire unit is disposable once removed. Once removed, keep incision clean and dry. If redness or drainage is noted, please call your surgeon. ONCE MICHAEL IS REMOVED, FOLLOW THESE INSTRUCTIONS: DERMABOND Prineo- This is a mesh tape dressing that is covered with glue. It should remain in place until the incision is properly healed, usually 10-14 days. This dressing is designed to naturally slough off. You may trim the excess mesh tape as it peels off. Incision may be briefly wet in a shower. Dry immediately by blotting with a clean, dry towel. Do not bath or swim until instructed by your doctor. Do not scratch, rub, or pick at the dressing. Do not apply any topical ointments or lotions until dressing is completely removed and/or instructed by your doctor. There may be a small piece of suture material at one end of your incision. Do not pull or trim this. If it is bothersome or catching on clothing, you may cover it with a band-aid. IF INCISION IS LEAKING THROUGH DRESSING, CALL THE OFFICE . FOLLOW UP VISIT: If appointment is not already scheduled: Please call [facility] to make a follow-up appointment for 2 weeks after your surgery at . Pending Studies at Discharge: No Stand-Alone Forms: My [facility] [employer], Smoking Cessation Medications and DC Order Prescriptions: New cefadroxil 500 mg capsule 500 mg PO BID 14 Days Qty: 28 0RF oxycodone 5 mg tablet 5 - 10 mg PO Q6H PRN (Reason: pain) Qty: 30 0RF Rx Instructions: ongoing therapy, supervising dr kenn mcqueen. max 6 tabs in 24 hours Xarelto 10 mg tablet 10 mg PO DAILY 28 Days Qty: 28 0RF acetaminophen 500 mg tablet 1,000 mg PO Q8 21 Days Qty: 126 0RF Continued ascorbic acid (vitamin C) [Vitamin C] 1,000 mg Tablet 1 g PO QAM spironolacton-hydrochlorothiaz 25-25 mg Tablet 1 tab PO QAM amlodipine 10 mg Tablet 10 mg PO QAM lisinopril 40 mg Tablet 40 mg PO QPM zinc 50 mg Capsule 50 mg PO QAM cholecalciferol (vitamin D3) [Vitamin D3] 125 mcg (5,000 unit) Tablet 125 mcg PO QAM Jardiance 25 mg Tablet 25 mg PO HS Trulicity 3 mg/0.5 mL Pen Injector 3 mg SUBCUT Q7D polyethylene glycol 3350 [Miralax] 17 gram powder in packet 17 g PO UD PRN (Reason: constipation) Patient Comments: HARDLY EVER acetaminophen 500 mg tablet 1,000 mg PO UD PRN (Reason: Pain) Discontinued sulindac 150 mg Tablet 150 mg PO BID tramadol 50 mg Tablet 50 mg PO Q6H PRN (Reason: Pain) Admission Data Admit Date/Time: 10/05/22 15:33 Attending Provider: Jesus Mcqueen Admit Provider: Jesus Mcqueen Primary Care Provider: Larry Wilcox Other Providers: [facility],Home Healthcare Other Interventions: Discharge Summary Assessment (RN) Last Done: 10/06/22 11:47
== END 2022-10-06 13:23 | disposition home health service (06) ==
LOC: 3E 09:21 → ASU 09:21
DX: Z88.2 Allergy status to sulfonamides; M25.462 Effusion, left knee; Z91.048 Other nonmedicinal substance allergy status; M17.12 Unilateral primary osteoarthritis, left knee; Z96.651 Presence of right artificial knee joint; Z88.8 Allergy status to other drugs, medicaments and biological substances; Z20.822 Contact with and (suspected) exposure to COVID-19; Z86.711 Personal history of pulmonary embolism